=== PATIENT | male | born 1945 | race Caucasian/White ===

== ENCOUNTER 2016-08-29 06:44 | Inpatient (IN) ==
[2016-08-29] MEDS ORDERED: methylPREDNISolone 125 MG/2 ML VIAL IVP ONE (06:51)
[2016-08-29] MEDS ORDERED: Ipratropium/Albuterol Neb 3 ML IH ONE (06:51)
[2016-08-29] MEDS ORDERED: Azithromycin 500 MG in D5% in Water 250 ML IVPB ONE (07:14)
--- NOTE | 2016-08-29 07:24 | Emergency Department Note ---
Disposition Clinical Impression: Pneumonia Qualifiers: Pneumonia type: due to unspecified organism Laterality: right Lung location: lower lobe of lung Qualified Code(s): J18.1 - Lobar pneumonia, unspecified organism Disposition: Admitted As Inpatient Condition: Good SOB HPI - General Chief Complaint: ED Shortness of Breath/Dyspnea Stated Complaint: JADE Time Seen by Provider: 08/29/16 06:50 Source: patient Limitations: no limitations Nursing Notes Reviewed: Yes Vital Signs Reviewed: Yes - History of Present Illness Patient here for evaluation of dyspnea that was sudden in onset at 3 AM this morning. Patient's symptoms initially started on Monday with chills and increasing use of albuterol at home. Patient has some underlying dyspnea at baseline and has home oxygen that he does not use. Patient takes albuterol between 2-8 times daily. Patient has been feeling chills but no overt fever. Found to have a temperature of 102 as well as tachycardia at 130 upon arrival. Intermittent wheezing with rhonchi more specific to the right lower lobe. Patient is able to talk in complete sentences without first lips. - Related Data Home Medications Medication Instructions Recorded Confirmed Aspirin [Lo-Dose Aspirin EC] 81 mg PO DAILY 08/29/16 08/29/16 Fluticasone/Vilanterol [Breo 1 puff IH DAILY 08/29/16 08/29/16 Ellipta 200-25 Mcg INH] Gemfibrozil [Gemfibrozil] 600 mg PO BID 08/29/16 08/29/16 Glimepiride [Amaryl] 2 mg PO BID 08/29/16 08/29/16 Guaifen/Phenyleph/Acetaminophn 1 tab PO BID 08/29/16 08/29/16 [Sudafed PE Pressure+Pain+Mucus] Guaifenesin [Mucinex] 600 mg PO BID 08/29/16 08/29/16 Insulin Glargine,Hum.rec.anlog 65 unit SQ QAM 08/29/16 08/29/16 [Lantus Solostar] Ipratropium/Albuterol Neb [Duoneb] 3 ml IH Q4HR 08/29/16 08/29/16 Loratadine [Claritin] 10 mg PO DAILY 08/29/16 08/29/16 Losartan/HCTZ [Hyzaar 50-12.5 1 tab PO DAILY 08/29/16 08/29/16 Tablet] Pravastatin Sodium [Pravachol] 80 mg PO DAILY 08/29/16 08/29/16 Tiotropium [place] [Spiriva] 18 mcg IH DAILY 08/29/16 08/29/16 Allergies Allergy/AdvReac Type Severity Reaction Status Date / Time No Known Allergies Allergy Verified 08/29/16 07:09 All systems ED: reviewed and negative except as stated. Constitutional: Reports: fever, chills Cardiovascular: Reports: dyspnea on exertion. Denies: chest pain Respiratory: Reports: cough, dyspnea, wheezes Endocrine: Reports: fatigue Past Medical History - Past Medical History Medical history: Reports: COPD, CVA, diabetes, hyperlipidemia, hypertension - Social History Smoking Status: Never smoker Smokeless Tobacco Status: No Alcohol use: Reports: none Drug use: Reports: none Physical Exam - General Limitations: no limitations General appearance: alert, in no apparent distress - Head Head exam: atraumatic, normocephalic - Eye Eye exam: Present: normal appearance - ENT ENT exam: normal exam - Neck Neck exam: Present: normal inspection - Chest Chest inspection: Present: normal inspection, symmetric chest wall rise. Absent : tenderness - Respiratory Respiratory exam: Present: respiratory distress, wheezes, other (Rhonchi to the right lower lobe). Absent: normal lung sounds bilaterally - Cardiovascular Cardiovascular exam: Present: normal rhythm, tachycardia - Abdominal Exam Abdominal exam: Present: soft, Non-Tender - Extremities Exam Extremities exam: Present: normal inspection. Absent: tenderness - Back Exam Back exam: Present: normal inspection - Neurological Exam Neurological exam: Present: alert, oriented X3, CN II-XII intact. Absent: motor sensory deficit - Psychiatric Psychiatric exam: Present: normal affect, normal mood - Skin Skin exam: Present: warm, dry Course - Reevaluation(s) Reevaluation #1: X-ray shows right lower lobe pneumonia. Due to the patient's age, hypoxia, tachycardia, temperature -the patient will be admitted to the hospital. - Consultations Consultation #1: Discussed with Dr. Lance. Pt accepted for admission. Vital Signs Temperature 102.8 F H 08/29/16 06:46 Pulse Rate 132 08/29/16 06:46 Respiratory Rate 24 08/29/16 06:46 Blood Pressure 129/81 08/29/16 06:46 O2 Sat by Pulse Oximetry 93 L 08/29/16 06:46 Temperature 97.6 F 08/30/16 07:40 Pulse Rate 84 08/30/16 07:40 Respiratory Rate 18 08/30/16 07:40 Blood Pressure 115/81 08/30/16 07:40 O2 Sat by Pulse Oximetry 95 08/30/16 07:40 Oxygen Delivery Oxygen Delivery Nasal Cannula Shortness of Breath/Dyspnea - Medical Records Medical records reviewed: Yes I reviewed the patient's medical records. - Lab Data Lab results reviewed: Yes I reviewed the patient's lab results. Result diagrams: 08/30/16 06:31 08/30/16 06:31 Lab Results 08/29/16 08/29/16 08/29/16 Range/Units 07:30 07:30 07:30 WBC 10.3 (4.3-11.1) K/mcL RBC 4.45 (4.19-5.50) M/mcL Hgb 12.1 L (12.9-16.9) g/dL Hct 37.9 (37.5-50.1) % MCV 85.2 (83.0-100.0) fL MCH 27.2 L (28.0-33.3) pg MCHC 31.9 (31.6-35.5) g/dL RDW 14.7 H (11.5-14.5) % Plt Count 284 (140-400) K/mcL MPV 9.9 (9.4-12.4) fL Immature Gran % 0.3 (0-4) % Seg Neutrophils % 89.2 % Lymphocytes % 6.0 % Monocytes % 3.2 % Eosinophils % 1.0 % Basophils % 0.3 % Neutrophils # 9.2 H (1.6-8.9) K/mcL Lymphocytes # 0.6 (0.6-4.6) K/mcL Monocytes # 0.3 (0.0-1.3) K/mcL Eosinophils # 0.1 (0.0-0.6) K/mcL Basophils # 0.0 (0.0-0.2) K/mcL Platelet Estimate Normal (Normal) Polychromasia 1+ A (Not Present) PT 14.0 H (9.4-12.1) Seconds INR 1.3 APTT 28.6 (26.0-36.0) Seconds Sodium (136-145) mEq/L Potassium (3.5-4.5) mEq/L Chloride (98-109) mEq/L Carbon Dioxide (19-29) mEq/L BUN (8-26) mg/dL Creatinine (0.72-1.25) mg/dL Est GFR ( Amer) (> 60) Est GFR (Non-Af Amer) (> 60) BUN/Creatinine Ratio (6-26) Glucose (70-99) mg/dL Calculated Osmolality (280-300) Lactic Acid 2.4 H (0.5-2.2) mmol/L Calcium (8.6-10.8) mg/dL Phosphorus (2.3-4.7) mg/dL Magnesium (1.6-2.6) mg/dL Total Bilirubin (0.2-1.2) mg/dL Direct Bilirubin (0.0-0.5) mg/dL Indirect Bilirubin (0.0-1.2) mg/dL AST (5-34) Units/L ALT (0-55) Units/L Alkaline Phosphatase (38-126) Units/L Troponin I (0-0.03) ng/mL B-Natriuretic Peptide (0-100) pg/mL Serum Total Protein (6.0-8.3) g/dL Albumin (3.5-5.0) g/dL Globulin (2.4-3.5) g/dL Albumin/Globulin Ratio (1.1-2.2) 08/29/16 08/29/16 08/29/16 Range/Units 07:30 07:30 07:30 WBC (4.3-11.1) K/mcL RBC (4.19-5.50) M/mcL Hgb (12.9-16.9) g/dL Hct (37.5-50.1) % MCV (83.0-100.0) fL MCH (28.0-33.3) pg MCHC (31.6-35.5) g/dL RDW (11.5-14.5) % Plt Count (140-400) K/mcL MPV (9.4-12.4) fL Immature Gran % (0-4) % Seg Neutrophils % % Lymphocytes % % Monocytes % % Eosinophils % % Basophils % % Neutrophils # (1.6-8.9) K/mcL Lymphocytes # (0.6-4.6) K/mcL Monocytes # (0.0-1.3) K/mcL Eosinophils # (0.0-0.6) K/mcL Basophils # (0.0-0.2) K/mcL Platelet Estimate (Normal) Polychromasia (Not Present) PT (9.4-12.1) Seconds INR APTT (26.0-36.0) Seconds Sodium 138 (136-145) mEq/L Potassium 3.5 (3.5-4.5) mEq/L Chloride 104 (98-109) mEq/L Carbon Dioxide 20 (19-29) mEq/L BUN 29 H (8-26) mg/dL Creatinine 1.56 H (0.72-1.25) mg/dL Est GFR ( Amer) 54 L (> 60) Est GFR (Non-Af Amer) 44 L (> 60) BUN/Creatinine Ratio 19 (6-26) Glucose 172 H (70-99) mg/dL Calculated Osmolality 296 (280-300) Lactic Acid (0.5-2.2) mmol/L Calcium 9.2 (8.6-10.8) mg/dL Phosphorus (2.3-4.7) mg/dL Magnesium (1.6-2.6) mg/dL Total Bilirubin (0.2-1.2) mg/dL Direct Bilirubin (0.0-0.5) mg/dL Indirect Bilirubin (0.0-1.2) mg/dL AST (5-34) Units/L ALT (0-55) Units/L Alkaline Phosphatase (38-126) Units/L Troponin I 0.01 (0-0.03) ng/mL B-Natriuretic Peptide 40 (0-100) pg/mL Serum Total Protein (6.0-8.3) g/dL Albumin (3.5-5.0) g/dL Globulin (2.4-3.5) g/dL Albumin/Globulin Ratio (1.1-2.2) 08/29/16 08/29/16 Range/Units 07:30 09:32 WBC (4.3-11.1) K/mcL RBC (4.19-5.50) M/mcL Hgb (12.9-16.9) g/dL Hct (37.5-50.1) % MCV (83.0-100.0) fL MCH (28.0-33.3) pg MCHC (31.6-35.5) g/dL RDW (11.5-14.5) % Plt Count (140-400) K/mcL MPV (9.4-12.4) fL Immature Gran % (0-4) % Seg Neutrophils % % Lymphocytes % % Monocytes % % Eosinophils % % Basophils % % Neutrophils # (1.6-8.9) K/mcL Lymphocytes # (0.6-4.6) K/mcL Monocytes # (0.0-1.3) K/mcL Eosinophils # (0.0-0.6) K/mcL Basophils # (0.0-0.2) K/mcL Platelet Estimate (Normal) Polychromasia (Not Present) PT (9.4-12.1) Seconds INR APTT (26.0-36.0) Seconds Sodium (136-145) mEq/L Potassium (3.5-4.5) mEq/L Chloride (98-109) mEq/L Carbon Dioxide (19-29) mEq/L BUN (8-26) mg/dL Creatinine (0.72-1.25) mg/dL Est GFR ( Amer) (> 60) Est GFR (Non-Af Amer) (> 60) BUN/Creatinine Ratio (6-26) Glucose (70-99) mg/dL Calculated Osmolality (280-300) Lactic Acid 2.8 H (0.5-2.2) mmol/L Calcium (8.6-10.8) mg/dL Phosphorus 1.5 L (2.3-4.7) mg/dL Magnesium 1.3 L (1.6-2.6) mg/dL Total Bilirubin 0.8 (0.2-1.2) mg/dL Direct Bilirubin 0.4 (0.0-0.5) mg/dL Indirect Bilirubin 0.4 (0.0-1.2) mg/dL AST 11 (5-34) Units/L ALT 8 (0-55) Units/L Alkaline Phosphatase 64 (38-126) Units/L Troponin I (0-0.03) ng/mL B-Natriuretic Peptide (0-100) pg/mL Serum Total Protein 7.8 (6.0-8.3) g/dL Albumin 3.0 L (3.5-5.0) g/dL Globulin 4.8 H (2.4-3.5) g/dL Albumin/Globulin Ratio 0.6 L (1.1-2.2) - Radiology Data Radiology results reviewed: Yes I reviewed the patient's radiology results. Chest X-Ray 08/29/16 06:52 IMPRESSION: 1. Right lower lobe pneumonia. Followup to resolution is recommended. 2. COPD. D/ / Hill wSeeney MD / Hill Sweeney MD Interpreting Provider: Hill Sweeney MD - EKG Data EKG attestation: Yes I reviewed and interpreted this EKG. EKG results narrative: EKG shows sinus tachycardia with a ventricular rate of 137. PA 158. QRS is 33. Patient depressions in V3 and V4. Depressions changed from previous . No other significant changes. Attestation Statement - Attestation Attestation: I examined this patient and my medical decision-making was reviewed with the INSTRUMENT LENS GENERATOR/PA/Advanced Practice Nurse/Resident Physician. I agree with the documented findings, disposition and treatment plan as described except to the extent set forth below. Patient emergency department if any difficulty in breathing. Patient states about 3 AM he "felt like I was going to ." Patient has home oxygen but he does not wear it. On examination he is awake and alert. Tachypneic. Febrile at 102. Lung sounds diminished. No wheezing rhonchi or rales. Abdomen soft. Plan. Patient displacement as a pneumonia. Febrile. Septic workup. Patient with infiltrate on chest x-ray. Fever 102. He is given Tylenol. Patient admitted to medicine. Patient meet septic shock criteria with elevated lactate and acute kidney injury. Magnesium and phosphorus are replaced. She given 2 L fluid bolus. Patient not hypotensive. Concerned with cardiac history for fluid overload. No further IV fluids at this time. 35 minutes of critical care time exclusive of separately billable procedures
[2016-08-29 07:42] LABS: Basophils % 0.3 %; Eosinophils # 0.1 K/mcL (0.0-0.6); Hematocrit 37.9 % (37.5-50.1); Hemoglobin 12.1 g/dL (12.9-16.9); Immature Granulocytes % 0.3 % (0-4); Lymphocytes # 0.6 K/mcL (0.6-4.6); Mean Corpuscular HGB Conc 31.9 g/dL (31.6-35.5); Mean Corpuscular Hemoglobin 27.2 pg (28.0-33.3); Mean Corpuscular Volume 85.2 fL (83.0-100.0); Mean Platelet Volume 9.9 fL (9.4-12.4); Monocytes # 0.3 K/mcL (0.0-1.3); Monocytes % 3.2 %; Neutrophils # 9.2 K/mcL (1.6-8.9); Platelet Count 284 K/mcL (140-400); Red Blood Count 4.45 M/mcL (4.19-5.50); Red Cell Distribution Width 14.7 % (11.5-14.5); Segmented Neutrophils % 89.2 %
[2016-08-29] MEDS: 0.9 % Sodium Chloride 1,000 ML IVC SCH ×2 (07:49→09:30)
[2016-08-29 07:55] LABS: Calcium 9.2 mg/dL (8.6-10.8); Potassium 3.5 mEq/L (3.5-4.5)
[2016-08-29 07:56] LABS: Albumin/Globulin Ratio 0.6 (1.1-2.2); Bilirubin,Direct 0.4 mg/dL (0.0-0.5); Bilirubin,Indirect 0.4 mg/dL (0.0-1.2); Bilirubin,Total 0.8 mg/dL (0.2-1.2); Globulin 4.8 g/dL (2.4-3.5); Magnesium 1.3 mg/dL (1.6-2.6); Phosphorous 1.5 mg/dL (2.3-4.7); Total Protein 7.8 g/dL (6.0-8.3)
[2016-08-29 08:11] LABS: Platelet Estimate Normal (Normal); Polychromasia 1+ (Not Present)
[2016-08-29 08:12] LABS: INR 1.3
[2016-08-29] MEDS ORDERED: Magnesium Oxide 400 MG TABLET PO STA (08:13)
[2016-08-29 08:15] LABS: Activated Partial Thrombo Time 28.6 Seconds (26.0-36.0)
[2016-08-29] MEDS ORDERED: FLU VACC QS2016-17 36MOS UP/PF 0.5 ML SYRINGE IM ONE (09:52)
[2016-08-29] MEDS ORDERED: Naloxone 0.4 MG/ML INJ IVP PRN (10:52)
[2016-08-29] MEDS ORDERED: *HR* Morphine 2 MG/ML SYRINGE IVP PRN (10:52)
[2016-08-29] MEDS ORDERED: 0.9 % Sodium Chloride 1,000 ML IVC SCH (11:00)
[2016-08-29] MEDS ORDERED: Dextrose Gel 15 GM PO PRN ×2 (11:02)
[2016-08-29] MEDS ORDERED: D5% in Water 1,000 ML IV PRN ×2 (11:02→22:04)
[2016-08-29] MEDS ORDERED: *HR* Dextrose 50 % in Water (Syg) 50 ML SYRINGE IVP PRN (11:02)
--- NOTE | 2016-08-29 11:16 | Internal Med History&Physical ---
Date of Encounter: 08/29/16 Time of Encounter: 11:05 Assessment and Plan (1) Pneumonia Status: Acute Bilateral PNA: - Blood cultures - IV ceftriaxone/IV Azithromycin - Repeat Xrays in 48 hours for possible improvement/worsening. - will treat as CAP Qualifiers: Pneumonia type: due to unspecified organism Laterality: right Lung location: lower lobe of lung Qualified Code(s): J18.1 - Lobar pneumonia, unspecified organism (2) Acute exacerbation of chronic obstructive airways disease Status: Acute Admit as inpatient IV antibiotics IV steroids BDAs close monitoring. (3) HTN (hypertension) Status: Acute will resume home meds close monitoring of blood pressure. will send 3 troponin to rule out cardiac event. Qualifiers: Hypertension type: essential hypertension Qualified Code(s): I10 - Essential (primary) hypertension (4) DVT prophylaxis Status: Acute heparin medical decision making : mild to moderate risk of worsening in spite on appropriate treatment. Internal Medicine - H&P: HPI Chief complaint: JADE Admitted From: Emergency Dept Plans for Post Hospital Care: Home History of present illness: PCP : Gaston Mederos Brief PMH: COPD, CVA, diabetes, hyperlipidemia, hypertension HPI: Patient's symptoms initially started on Monday with chills and increasing use of albuterol at home. Patient has some underlying dyspnea at baseline and has home oxygen that he does not use. Patient takes albuterol between 2-8 times daily. Patient has been feeling chills but no overt fever. Found to have a temperature of 102 as well as tachycardia at 130 upon arrival. A spiking fever was brought this patient to the emergency room for further evaluation. Patient denies chest pain, palpitations, dizziness, abdominal pain and diarrhea. Emergency room workup: Patient was evaluated in the emergency room. CXR bilateral PNA. saturation 88% on 2 L. patient does not have oxygen at home. reason for admission : acute exacerbation of COPD precipated by PNA. Needs IV abx. Family history : non contributory. Past Med Surg Social Fam HX - Past Medical History Medical history: COPD, CVA, diabetes, hyperlipidemia, hypertension - Past Surgical History Surgical History: no surgical history - Social History Smoking Status: Former smoker Smokeless Tobacco Status: No Alcohol use: none Drug use: none Internal Medicine - H&P: Meds Aspirin [Lo-Dose Aspirin EC] 81 mg PO DAILY 08/29/16 [History] Fluticasone/Vilanterol [Breo Ellipta 200-25 Mcg INH] 1 puff IH DAILY 08/29/16 [ History] Gemfibrozil 600 mg PO BID 08/29/16 [History] Glimepiride [Amaryl] 2 mg PO BID 08/29/16 [History] Guaifen/Phenyleph/Acetaminophn [Sudafed PE Mtyesgso-Nyac-Bnnim] 1 tab PO BID 12/10 [History] Guaifenesin [Mucinex] 600 mg PO BID 08/29/16 [History] Insulin Glargine,Hum.rec.anlog [Lantus Solostar] 65 unit SQ QAM 08/29/16 [ History] Ipratropium/Albuterol Neb [Duoneb] 3 ml IH Q4HR 08/29/16 [History] Loratadine [Claritin] 10 mg PO DAILY 08/29/16 [History] Losartan/HCTZ [Hyzaar 50-12.5 Tablet] 1 tab PO DAILY 08/29/16 [History] Pravastatin Sodium [Pravachol] 80 mg PO DAILY 08/29/16 [History] Tiotropium [place] [Spiriva] 18 mcg IH DAILY 08/29/16 [History] Apixaban [Eliquis] 5 mg PO BID #60 tablet 09/03/16 [Rx] Diltiazem CD (24hr) [Cardizem CD] 240 mg PO DAILY #30 cap.er.24h 09/03/16 [Rx] Levofloxacin [Levaquin] 500 mg PO DAILY #4 tablet 09/03/16 [Rx] Metoprolol XL (24 HR) Succ [Toprol Xl] 50 mg PO DAILY #60 tab.er.24h 09/03/16 [ Rx] PredniSONE 40 mg PO DAILY #7 tablet 09/03/16 [Rx] Allergies No Known Allergies Allergy (Verified 08/29/16 07:09) All Systems PM: A 10-system review of systems was performed and is negative for pertinent findings except as documented above in the HPI. - Constitutional Constitutional: no chills, no fever(s), no night sweats - EENT Eyes: no change in vision, no discharge, no pain, no photophobia Ears: no ear discharge, no ear pain, no tinnitus Nose, mouth and throat: no dysphagia, no nasal discharge, no neck pain, no sore throat - Cardiovascular Cardiovascular ROS IM: no chest pain, no diaphoresis, no dyspnea, no lightheadedness, no palpitations, no syncope - Respiratory Respiratory: cough, dyspnea, wheezing, excessive phlegm production, change in phlegm color - Gastrointestinal Gastrointestinal: no abdominal pain, no diarrhea, no hematemesis, no hematochezia, no melena, no nausea, no vomiting - Musculoskeletal Musculoskeletal ROS IM: no numbness, no tingling - Integumentary Integumentary IM: no rash, no unusual bruising - Neurological Neurological ROS: no confusion, no convulsions, no focal weakness, no numbness, no tingling, no tremor(s) - Hematologic/Lymphatic Hematologic/Lymphatic: no easy bruising - Constitutional Vitals: Temp Pulse Resp BP Pulse Ox 97.9 F 99 22 122/60 94 L 08/29/16 09:37 08/29/16 09:37 08/29/16 09:37 08/29/16 09:37 08/29/16 09:37 General appearance: Present: mild distress, A&O X 3, pleasant, answers questions appropriately - Head Head exam: Present: atraumatic, normocephalic - Eye Eye exam: Present: PERRL, conjuntiva pink, sclera anicteric Pupils: Present: PERRL - Neck Neck exam general surgery: Present: supple, trachea midline. Absent: lymphadenopathy - Respiratory Respiratory exam: Present: CTAB. Absent: accessory muscle use, rales, rhonchi, wheezes - Cardiovascular Cardiovascular exam: Present: RRR, +S1, +S2. Absent: diastolic murmur, gallop, rubs, systolic murmur - GI/Abdominal GI/Abdominal exam: Present: normal bowel sounds, soft, no peritoneal signs. Absent: distended, tenderness - Extremities Exam Extremities exam: Present: warm, radial pulses palpable and symetrical. Absent : calf tenderness, cyanotic, pedal edema - Neurological Exam Neurological exam: Present: CN II-XII intact, oriented X3, no focal deficits. Absent: pronater drift, facial droop, speech deficit - Skin Skin exam: Present: dry, intact Internal Med - H&P Results - Labs CBC & Chem 7: 09/03/16 05:52 09/03/16 05:52
[2016-08-29] MEDS: Aspirin Enteric Coated 81 MG Tablet PO SCH (12:17)
[2016-08-29] MEDS: Insulin LISPRO 300 UNITS/3 ML VIAL SQ SCH ×2 (12:19→16:32)
[2016-08-29 12:45] LABS: Bilirubin,Urine Negative (Negative); Blood,Urine Negative (Negative); Clarity,Urine Clear (Clear); Color,Urine Yellow (Yellow); Glucose,Urine (UA) Normal (Normal); Ketones,Urine Negative (Negative); Leukocyte Esterase,Urine Trace (Negative); Nitrite,Urine Negative (Negative); PH,Urine 5.5 pH Units (5.0-8.0); Protein,Urine 30 mg/dL (Neg-Trace); Specific Gravity,Urine 1.022 (1.010-1.025); Urobilinogen,Urine Normal (Normal)
[2016-08-29 12:47] LABS: Bacteria,Urine None Seen per hpf (None-Few); Hyaline Casts,Urine None Seen per lpf (None-Few); Squamous Epithelial Cell,Urine Many per lpf (None-Few)
[2016-08-29] MEDS: Ipratropium/Albuterol Neb 3 ML IH SCH ×3 (13:18→20:32)
[2016-08-29] MEDS: MethylPREDNISolone 40 MG/ML VIAL IVP SCH (16:32)
[2016-08-29] MEDS: *HR* Heparin 5,000 UNIT/ML VIAL SQ SCH (16:32)
[2016-08-29] MEDS ORDERED: Insulin LISPRO 300 UNITS/3 ML VIAL SQ SCH (22:15)
[2016-08-30] MEDS: Insulin LISPRO 300 UNITS/3 ML VIAL SQ SCH ×5 (00:13→21:17)
[2016-08-30] MEDS: MethylPREDNISolone 40 MG/ML VIAL IVP SCH ×4 (00:54→21:16)
[2016-08-30] MEDS: Ipratropium/Albuterol Neb 3 ML IH SCH ×6 (04:13→21:25)
[2016-08-30] MEDS: *HR* Heparin 5,000 UNIT/ML VIAL SQ SCH (06:13)
[2016-08-30 06:53] LABS: Basophils % 0.1 %; Hematocrit 31.3 % (37.5-50.1); Immature Granulocytes % 0.5 % (0-4); Lymphocytes # 1.3 K/mcL (0.6-4.6); Lymphocytes % 8.8 %; Mean Corpuscular HGB Conc 32.6 g/dL (31.6-35.5); Mean Corpuscular Hemoglobin 28.1 pg (28.0-33.3); Mean Corpuscular Volume 86.2 fL (83.0-100.0); Mean Platelet Volume 10.1 fL (9.4-12.4); Monocytes # 0.4 K/mcL (0.0-1.3); Monocytes % 2.5 %; Neutrophils # 13.1 K/mcL (1.6-8.9); Platelet Count 259 K/mcL (140-400); Red Blood Count 3.63 M/mcL (4.19-5.50); Red Cell Distribution Width 14.6 % (11.5-14.5); Segmented Neutrophils % 88.1 %
[2016-08-30 06:54] LABS: Hemoglobin 10.2 g/dL (12.9-16.9)
[2016-08-30 07:08] LABS: Alanine Aminotransferase 8 Units/L (0-55); Albumin 2.8 g/dL (3.5-5.0); Albumin/Globulin Ratio 0.6 (1.1-2.2); Alkaline Phosphatase 56 Units/L (38-126); Aspartate Amino Transferase 9 Units/L (5-34); BUN/Creatinine Ratio 19 (6-26); Bilirubin,Total 0.4 mg/dL (0.2-1.2); Blood Urea Nitrogen 26 mg/dL (8-26); Calcium 8.9 mg/dL (8.6-10.8); Carbon Dioxide 19 mEq/L (19-29); Chloride 105 mEq/L (98-109); Chol/HDL Ratio 5.3 (0-4.9); Cholesterol 154 mg/dL (< 200); Globulin 4.7 g/dL (2.4-3.5); Glucose 276 mg/dL (70-99); HDL Cholesterol 29 mg/dL (40-59); LDL Cholesterol,Calculated 102 mg/dL (0-99); Magnesium 1.5 mg/dL (1.6-2.6); Osmolality,Calculated 297 (280-300); Potassium 3.9 mEq/L (3.5-4.5); Sodium 136 mEq/L (136-145); Total Protein 7.5 g/dL (6.0-8.3); Triglycerides 113 mg/dL (< 150); eGFR For African Americans > 60 (> 60); eGFR For Non-African Americans 53 (> 60)
[2016-08-30 07:22] LABS: Phosphorous 2.8 mg/dL (2.3-4.7)
[2016-08-30] MEDS ORDERED: Insulin LISPRO 300 UNITS/3 ML VIAL SQ SCH (07:30)
--- NOTE | 2016-08-30 07:53 | Internal Med History&Physical ---
Date of Encounter: 08/30/16 Internal Medicine - H&P: HPI History of present illness: Mr. Garrett is a 71 year old male Past Med Surg Social Fam HX - Past Medical History Medical history: COPD, CVA, diabetes, hyperlipidemia, hypertension - Past Surgical History Surgical History: no surgical history - Social History Smoking Status: Never smoker Smokeless Tobacco Status: No Alcohol use: none Drug use: none Internal Medicine - H&P: Meds Aspirin [Lo-Dose Aspirin EC] 81 mg PO DAILY 08/29/16 [History] Fluticasone/Vilanterol [Breo Ellipta 200-25 Mcg INH] 1 puff IH DAILY 08/29/16 [ History] Gemfibrozil [Gemfibrozil] 600 mg PO BID 08/29/16 [History] Glimepiride [Amaryl] 2 mg PO BID 08/29/16 [History] Guaifen/Phenyleph/Acetaminophn [Sudafed PE Pressure+Pain+Mucus] 1 tab PO BID 12/10 [History] Guaifenesin [Mucinex] 600 mg PO BID 08/29/16 [History] Insulin Glargine,Hum.rec.anlog [Lantus Solostar] 65 unit SQ QAM 08/29/16 [ History] Ipratropium/Albuterol Neb [Duoneb] 3 ml IH Q4HR 08/29/16 [History] Loratadine [Claritin] 10 mg PO DAILY 08/29/16 [History] Losartan/HCTZ [Hyzaar 50-12.5 Tablet] 1 tab PO DAILY 08/29/16 [History] Pravastatin Sodium [Pravachol] 80 mg PO DAILY 08/29/16 [History] Tiotropium [place] [Spiriva] 18 mcg IH DAILY 08/29/16 [History] Allergies No Known Allergies Allergy (Verified 08/29/16 07:09) All Systems PM: A 10-system review of systems was performed and is negative for pertinent findings except as documented above in the HPI. - Constitutional Vitals: Temp Pulse Resp BP Pulse Ox 97.6 F 84 18 115/81 95 08/30/16 07:40 08/30/16 07:40 08/30/16 07:40 08/30/16 07:40 08/30/16 07:40 General appearance: Present: mild distress, A&O X 3, pleasant, answers questions appropriately Internal Med - H&P Results - Labs CBC & Chem 7: 08/30/16 06:31 08/30/16 06:31 Labs: Short CBC 08/30/16 Range/Units 06:31 WBC 14.9 H (4.3-11.1) K/mcL Hgb 10.2 L D (12.9-16.9) g/dL Hct 31.3 L (37.5-50.1) % Plt Count 259 (140-400) K/mcL Neutrophils # 13.1 H (1.6-8.9) K/mcL BMP 08/30/16 06:31 Sodium 136 Potassium 3.9 Chloride 105 Carbon Dioxide 19 BUN 26 Creatinine 1.34 H Glucose 276 H Calcium 8.9 Cardiac Enzymes 08/29/16 08/29/16 08/30/16 Range/Units 15:45 21:27 06:31 Troponin I 0.00 0.00 0.00 (0-0.03) ng/mL Liver Function 08/30/16 Range/Units 06:31 Total Bilirubin 0.4 (0.2-1.2) mg/dL AST 9 (5-34) Units/L ALT 8 (0-55) Units/L Alkaline Phosphatase 56 (38-126) Units/L Albumin 2.8 L (3.5-5.0) g/dL Urine 08/29/16 Range/Units 12:19 Urine Color Yellow (Yellow) Urine Clarity Clear (Clear) Urine pH 5.5 (5.0-8.0) pH Units Ur Specific [place] 1.022 (1.010-1.025) Urine Protein 30 H (Neg-Trace) mg/dL Urine Glucose (UA) Normal (Normal) mg/dL
[2016-08-30] MEDS: Aspirin Enteric Coated 81 MG Tablet PO SCH (08:15)
[2016-08-30] MEDS: Insulin DETEMIR 100 UNIT/ML X5UNITS SQ SCH (08:17)
[2016-08-30] MEDS ORDERED: Azithromycin 500 MG in D5% in Water 250 ML IVPB SCH (09:00)
[2016-08-30] MEDS ORDERED: Losartan/HCTZ 50-12.5 TABLET PO SCH (09:00)
[2016-08-30] MEDS ORDERED: Albuterol 2.5 MG/3 ML NEBULIZER IH PRN (09:53)
[2016-08-30] MEDS ORDERED: Magnesium Sulfate 2 GM in D5% in Water 100 ML IVPB ONE (11:23)
[2016-08-30] MEDS ORDERED: 0.9 % Sodium Chloride 1,000 ML IVC ONE (11:37)
[2016-08-30] MEDS: Budesonide/Formoterol 80/4.5 MDI IH SCH ×2 (11:54→21:23)
--- NOTE | 2016-08-30 12:10 | Electrocardiograph Report ---
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
[2016-08-30] MEDS ORDERED: 0.9 % Sodium Chloride 250 ML ONE (14:08)
--- NOTE | 2016-08-30 14:30 | Electrocardiograph Report ---
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
--- NOTE | 2016-08-30 14:50 | Cardiology Consult Note ---
Date of Encounter: 08/30/16 Time of Encounter: 14:00 Assessment and Plan (1) Pneumonia Current Visit: Yes Status: Acute Per cardiology: -Patient with increased shortness of breath. and febrile on admission. -Chest x-ray with RLL pneumonia and COPD. WBC 14.9. -On nebs, O2, anitibiotics, and steroids. -Management per primary service. -Will change albuterol nebs to xopenex due to tachycardia. -May be contributing factor to atrial fibrillation. (IGNACIO) Qualifiers: Pneumonia type: due to unspecified organism Laterality: right Lung location: lower lobe of lung Qualified Code(s): J18.1 - Lobar pneumonia, unspecified organism (2) Acute exacerbation of chronic obstructive airways disease Current Visit: Yes Status: Acute Per cardiology: -Known history of COPD. -On home O2. -On nebs, O2, antibiotics, and steroids as inpatient. -Management per primary service. -May be contributing factor to atrial fibrillation. (IGNACIO) (3) Atrial fibrillation Current Visit: Yes Status: Acute Per cardioogy: -Patient with apparent new onset atrial fibrillation with RVR. HR currently 100- 110s. Asymptomatic -No known history of atrial fibrillation. -Troponins negative x4. -Currently on cardizem drip at 10mg/hour (ordered per primary service) -[id number] score 5. -Currently on eliquis 5mg PO BID (ordered by primary service)-- will give first dose now and discontinue subcutaneous heparin. -Discussed at length regarding increased risk of stroke. Patient and family state understanding and agreeable to treatment plan. -Will check TSH. -WIll continue cardizem drip for now-- will start Cardizem 30 mg by mouth every 6 hours and attempt to wean off IV Cardizem drip to keep heart rate less than 100 bpm. -Will check echocardiogram when better rate controlled. -Will continue to monitor. -Solid blood pressure currently 90s to 120s, will discontinue Hyzaar to allow for room for titration of calcium channel darling for rate control. Has history of diabetes mellitus type 2, will consider resumption of SOHAIL inhibitor once rate controlled and BP can tolerate. -Further recommendations once HR and BP re-evaluated. (IGNACIO) Qualifiers: Atrial fibrillation type: unspecified Qualified Code(s): I48.91 - Unspecified atrial fibrillation (4) Hypomagnesemia Current Visit: Yes Status: Acute Per cardiology: -Mg on admission 1.3-replaced per primary service. -Mg today 1.5-replaced per primary service. -Management per primary service, -Will re-check tomorrow. -May be contributing to atrial fibrillation. (IGNACIO) Discussion w patient/family: The assessment and plan as outlined above was discussed with the patient and/or family members who expressed understanding and agreement. All questions were answered. Thank you for involving us in the care of your patient. Please call with any questions. Patient seen and examined with SALMA Fisher Discussed and reviewed with . History of Present Illness Consult date: 08/30/16 Requesting physician: Sebastian White Consult reason: new onset a.fib rvr Chief complaint: shortness of breath History of present illness: Mr. Garrett is a 71 year old male with a relevant past medical history of HTN, CVA , DM, hyperlipidemia. Patient presented with shortness of breath. Patient wears O2 at home, but states shortness of breath had been increasing. Patient states he has a cough also. Patient admits fever. Denies chest pain or dizziness. (IGNACIO) Past Med Surg Social Fam HX - Past Medical History Attestation: Yes The following information was validated with the patient. Source: patient, old records reviewed Medical history: COPD, CVA, diabetes, hyperlipidemia, hypertension - Past Surgical History Surgical History: no surgical history - Social History Smoking Status: Never smoker Smokeless Tobacco Status: No Alcohol use: none Drug use: none Medications and Allergies Aspirin [Lo-Dose Aspirin EC] 81 mg PO DAILY 08/29/16 [History] Fluticasone/Vilanterol [Breo Ellipta 200-25 Mcg INH] 1 puff IH DAILY 08/29/16 [ History] Gemfibrozil [Gemfibrozil] 600 mg PO BID 08/29/16 [History] Glimepiride [Amaryl] 2 mg PO BID 08/29/16 [History] Guaifen/Phenyleph/Acetaminophn [Sudafed PE Pressure+Pain+Mucus] 1 tab PO BID 12/10 [History] Guaifenesin [Mucinex] 600 mg PO BID 08/29/16 [History] Insulin Glargine,Hum.rec.anlog [Lantus Solostar] 65 unit SQ QAM 08/29/16 [ History] Ipratropium/Albuterol Neb [Duoneb] 3 ml IH Q4HR 08/29/16 [History] Loratadine [Claritin] 10 mg PO DAILY 08/29/16 [History] Losartan/HCTZ [Hyzaar 50-12.5 Tablet] 1 tab PO DAILY 08/29/16 [History] Pravastatin Sodium [Pravachol] 80 mg PO DAILY 08/29/16 [History] Tiotropium [place] [Spiriva] 18 mcg IH DAILY 08/29/16 [History] Allergies No Known Allergies Allergy (Verified 08/29/16 07:09) All Systems Review: A 10-system review of systems was performed and is negative for pertinent findings except as documented above in the HPI. - Constitutional Constitutional: fever(s) - Cardiovascular Cardiovascular: as per HPI, dyspnea at rest, dyspnea on exertion - Respiratory Respiratory: cough, dyspnea Physical Examination Vital Signs, Last 4 Hours Temp Pulse Resp BP Pulse Ox 08/30/16 12:35 98.2 F 105 20 122/74 93 L 08/30/16 11:42 97.7 F 123 18 99/64 93 L General: Conversant, No Apparent Distress HEENT: Atraumatic, Normocephaly, Mucus Membranes Moist Neck: No JVD, Normal carotid pulses Cardiac: Other (Irregularly, irregular) Lungs: Other (Right lower lobe with dimished breath sounds. Wheezing throughout. ) Neuro: Alert and responsive, No focal deficits noted Abdomen: Soft, Non-Tender Skin: No rashes noted on visualized skin Musculoskeletal: No Chest Wall Tenderness Extremities: No Clubbing, No Cyanosis, No Edema, Normal Pulses Results 08/30/16 06:31 08/30/16 06:31 Lab Results ITS Impressions Chest X-Ray 08/29/16 06:52 IMPRESSION: 1. Right lower lobe pneumonia. Followup to resolution is recommended. 2. COPD. D/ / Hill Sweeney MD / Hill Sweeney MD Interpreting Provider: Hill Sweeney MD Active Medications Albuterol Sulfate (Proventil Neb) 2.5 mg IH [id number] PRN; Protocol PRN Reason: Shortness Of Breath/Wheezing Stop: 03/01/17 09:54 Albuterol/Ipratropium (Duoneb) 3 ml IH QIDR CAROLYN PRN Reason: Protocol Stop: 03/01/17 11:01 Last Admin: 08/30/16 11:54 Dose: Not Given Apixaban (Eliquis) 5 mg PO BID CAROL[facility] Stop: 03/01/17 21:01 Aspirin (Aspirin Ec) 81 mg PO DAILY [facility] Stop: 02/28/17 11:01 Last Admin: 08/30/16 08:15 Dose: 81 mg Budesonide/Formoterol Fumarate (Symbicort) 2 puff IH BIDR CAROLYN PRN Reason: Protocol Stop: 03/01/17 10:01 Last Admin: 08/30/16 11:54 Dose: Not Given Dextrose/Water (Dextrose 50% (Syg)) 25 ml IVP AD PRN PRN Reason: Hypoglycemia Stop: 02/28/17 11:03 Gemfibrozil (Lopid) 600 mg PO BID [facility] Stop: 02/28/17 21:01 Last Admin: 08/30/16 08:15 Dose: 600 mg Glucagon (Glucagen) 1 mg IM ONCE PRN PRN Reason: Hypoglycemia Stop: 02/28/17 11:03 Glucose (Gluctose) 15 gm PO ONCE PRN PRN Reason: Hypoglycemia Stop: 02/28/17 11:03 Glucose (Gluctose) 30 gm PO ONCE PRN PRN Reason: Hypoglycemia Stop: 02/28/17 11:03 HCTZ/Losartan Potassium (Hyzaar 50/12.5) 1 each PO DAILY [facility] Stop: 03/01/17 09:01 Last Admin: 08/30/16 08:15 Dose: 1 each Heparin Sodium (Porcine) (Heparin) 5,000 unit SQ Q12HR CAROL[facility] Stop: 08/30/16 19:00 Last Admin: 08/30/16 06:13 Dose: 5,000 unit Azithromycin 500 mg/ Dextrose 250 mls @ 252 mls/hr IVPB Q24H [facility] Stop: 03/01/17 09:01 Last Infusion: 08/30/16 08:20 Dose: Infused Ceftriaxone Sodium 1,000 mg/ (Dextrose) 100 mls @ 200 mls/hr IVPB Q24H [facility] Stop: 03/01/17 11:01 Last Admin: 08/30/16 12:07 Dose: 200 mls/hr Dextrose (Dextrose 5%) 1,000 mls @ 100 mls/hr IV CONT PRN PRN Reason: HYPOGLYCEMIA Stop: 02/28/17 22:05 Diltiazem HCl 125 mg/ Dextrose 125 mls @ 10 mls/hr IVC .[id number] [facility] PRN Reason: 10 MG/HR Stop: 03/01/17 13:16 Last Admin: 08/30/16 14:16 Dose: 10 mg/hr, 10 mls/hr Insulin Detemir (Levemir) 65 unit SQ QAM [facility] Stop: 03/01/17 09:01 Last Admin: 08/30/16 08:17 Dose: 65 unit Insulin Human Lispro (Humalog) 0 units SQ HS [facility] PRN Reason: Protocol Stop: 02/28/17 23:46 Last Admin: 08/30/16 00:13 Dose: 8 units Insulin Human Lispro (Humalog) 0 units SQ TIDAC [facility] PRN Reason: Protocol Stop: 03/01/17 07:31 Last Admin: 08/30/16 11:55 Dose: 14 units Methylprednisolone (Solu-Medrol) 40 mg IVP Q12H [facility] Stop: 03/01/17 10:01 Last Admin: 08/30/16 11:58 Dose: Not Given Morphine Sulfate (Morphine Sulfate) 2 mg IVP Q6HR PRN PRN Reason: Severe Pain (7-10) Stop: 02/28/17 10:53 Naloxone HCl (Narcan) 0.4 mg IVP Q2MIN PRN PRN Reason: Opioid Reversal Stop: 02/28/17 10:53 Omeprazole (Prilosec) 20 mg PO DAILY@0630 [facility] PRN Reason: Protocol Stop: 03/01/17 06:31 Last Admin: 08/30/16 06:13 Dose: 20 mg Simvastatin (Zocor) 40 mg PO DAILY [facility] Stop: 03/01/17 09:01 Last Admin: 08/30/16 08:15 Dose: 40 mg Laboratory Tests 08/29/16 08/29/16 08/30/16 07:30 07:30 06:31 WBC 14.9 H Hgb 10.2 L D Creatinine 1.56 H Est GFR (Non-Af Amer) 44 L Magnesium 1.3 L 08/30/16 06:31 WBC Hgb Creatinine 1.34 H Est GFR (Non-Af Amer) 53 L Magnesium 1.5 L Laboratory Tests 08/29/16 08/29/16 08/29/16 07:30 15:45 21:27 Troponin I 0.01 0.00 0.00 08/30/16 06:31 Troponin I 0.00 - Imaging and Cardiology Chest Xray: report reviewed - EKG Interpretation EKG results cardiology: personally reviewed (ECG on admission with Sinus tachycardia with heart rate 132 with PACs.), other (Telemetry reviewed with average heart rate 85. Currently atrial fibrillation with heart rates between 100-110s.) Consult Discharge Plan - Plan Referrals: Christoph,Raphael Palm MD [Non-Partnered Physician] - 09/09/16 2:20 pm
[2016-08-30] MEDS: Levalbuterol Neb 1.25 MG/3 ML IH SCH ×3 (16:40→21:25)
[2016-08-30] MEDS ORDERED: APIXABAN 5 MG TABLET PO SCH (21:00)
[2016-08-30] MEDS: APIXABAN 5 MG TABLET PO SCH (21:15)
[2016-08-31] MEDS: Levalbuterol Neb 1.25 MG/3 ML IH SCH ×4 (03:47→22:12)
[2016-08-31] MEDS: Ipratropium/Albuterol Neb 3 ML IH SCH ×4 (03:47→22:15)
[2016-08-31 06:07] LABS: Thyroid Stimulating Hormone 1.922 mcIU/mL (0.350-4.840)
[2016-08-31] MEDS: APIXABAN 5 MG TABLET PO SCH ×2 (07:52→20:11)
[2016-08-31] MEDS: Aspirin Enteric Coated 81 MG Tablet PO SCH (07:52)
[2016-08-31] MEDS: Insulin LISPRO 300 UNITS/3 ML VIAL SQ SCH ×4 (07:53→21:21)
[2016-08-31] MEDS ORDERED: Vancomycin 2,000 MG in D5% in Water 500 ML IVPB ONE (07:58)
[2016-08-31] MEDS: Insulin DETEMIR 100 UNIT/ML X5UNITS SQ SCH (08:34)
[2016-08-31 08:48] LABS: Basophils % 0.1 %; Hematocrit 31.7 % (37.5-50.1); Hemoglobin 10.1 g/dL (12.9-16.9); Immature Granulocytes % 0.6 % (0-4); Lymphocytes # 1.4 K/mcL (0.6-4.6); Lymphocytes % 9.9 %; Mean Corpuscular HGB Conc 31.9 g/dL (31.6-35.5); Mean Corpuscular Hemoglobin 27.5 pg (28.0-33.3); Mean Corpuscular Volume 86.4 fL (83.0-100.0); Mean Platelet Volume 10.7 fL (9.4-12.4); Monocytes # 0.4 K/mcL (0.0-1.3); Monocytes % 2.7 %; Neutrophils # 12.5 K/mcL (1.6-8.9); Platelet Count 302 K/mcL (140-400); Red Blood Count 3.67 M/mcL (4.19-5.50); Red Cell Distribution Width 14.6 % (11.5-14.5); Segmented Neutrophils % 86.7 %
[2016-08-31 08:57] LABS: BUN/Creatinine Ratio 25 (6-26); Blood Urea Nitrogen 30 mg/dL (8-26); Calcium 8.8 mg/dL (8.6-10.8); Carbon Dioxide 18 mEq/L (19-29); Chloride 106 mEq/L (98-109); Glucose 350 mg/dL (70-99); Osmolality,Calculated 300 (280-300); Phosphorous 2.3 mg/dL (2.3-4.7); Potassium 4.7 mEq/L (3.5-4.5); Sodium 135 mEq/L (136-145); eGFR For African Americans > 60 (> 60); eGFR For Non-African Americans 59 (> 60)
[2016-08-31] MEDS ORDERED: *HR* Metoprolol 5 MG/5 ML VIAL IVP ONE (09:17)
--- NOTE | 2016-08-31 09:33 | Cardiology Progress Note ---
Date of Encounter: 08/31/16 Time of Encounter: 08:30 Assessment and Plan (1) Pneumonia Current Visit: Yes Status: Acute Per cardiology: -Patient with increased shortness of breath. and febrile on admission. -Chest x-ray with RLL pneumonia and COPD. WBC 14.1. -On nebs, O2, anitibiotics, and steroids. -Management per primary service. -May be contributing factor to atrial fibrillation. (IGNACIO) Qualifiers: Pneumonia type: due to unspecified organism Laterality: right Lung location: lower lobe of lung Qualified Code(s): J18.1 - Lobar pneumonia, unspecified organism (2) Acute exacerbation of chronic obstructive airways disease Current Visit: Yes Status: Acute Per cardiology: -Known history of COPD. -On home O2. -On nebs, O2, antibiotics, and steroids as inpatient. -Management per primary service. -May be contributing factor to atrial fibrillation. (IGNACIO) (3) Atrial fibrillation Current Visit: Yes Status: Acute Per cardioogy: -Patient with apparent new onset atrial fibrillation with RVR. HR currently 90- 110s, atrial fibrillation. Average HR last 12 hours 93. -No known history of atrial fibrillation. -Cardizem drip off. Currently on cardizem 30mg PO [id number]. -[id number] score 5. -Currently on eliquis 5mg PO BID (ordered by primary service). -Discussed at length regarding increased risk of stroke. Patient and family state understanding and agreeable to treatment plan. -TSH 1.922. -Echo pending -HYzaar stopped due to labile BP and kidney function. -Will increase cardizem to 60mg PO [id number]. Will give IV Lopressor 2.5mg x 1-- HR jumped to 110's when up out of bed. SBP ranging 100's - 150's. -Will continue to monitor. -Will consider resumption of SOHAIL inhibitor once rate controlled and BP can tolerate. -Further recommendations once HR and BP re-evaluated and echocardiogram complete. (IGNACIO) Qualifiers: Atrial fibrillation type: unspecified Qualified Code(s): I48.91 - Unspecified atrial fibrillation (4) Hypomagnesemia Current Visit: Yes Status: Acute Per cardiology: -Mg on admission 1.3-replaced per primary service. -Mg today 2.0. -Management per primary service, -May be contributing to atrial fibrillation. (IGNACIO) Discussion w patient/family: The assessment and plan as outlined above was discussed with the patient and/or family members who expressed understanding and agreement. All questions were answered. Thank you for involving us in the care of your patient. Please call with any questions. Patient seen and examined with SALMA Fisher Discussed and reviewed with . Subjective Principal diagnosis: shortness of breath Interval history: Patient with presentation of worsening shortness of breath. Patient admitted per primary service. While inpatient, it was noted that patient was in atrial fibrillation with rapid ventricular response. Cardiology was consulted. Patient was asymptomatic. Patient denies any palpitations, fluttering, or dizziness. (IGNACIO ) Objective Vital Signs, Last 4 Hours Temp Pulse Resp BP Pulse Ox 08/31/16 07:30 97.5 F L 114 18 111/92 93 L 08/31/16 07:24 97.5 F L 114 18 111/92 93 L General: Conversant, Other (Conversational dyspnea noted. ) HEENT: Atraumatic, Normocephaly, Mucus Membranes Moist Neck: No JVD Cardiac: Other (Irregularly, irregular ) Lungs: No Wheeze, Rales, Rhonchi, Other (Right lower lobe with diminished breath sounds. ) Neuro: Alert and responsive, No focal deficits noted Abdomen: Soft, Non-Tender Skin: No rashes noted on visualized skin Musculoskeletal: No Chest Wall Tenderness Extremities: No Clubbing, No Cyanosis, No Edema, Normal Pulses Results 08/31/16 03:45 08/31/16 03:45 Lab Results Active Medications Albuterol/Ipratropium (Duoneb) 3 ml IH QIDR CAROLYN PRN Reason: Protocol Stop: 03/01/17 11:01 Last Admin: 08/31/16 03:47 Dose: Not Given Apixaban (Eliquis) 5 mg PO BID [facility] Stop: 03/01/17 21:01 Last Admin: 08/31/16 07:52 Dose: 5 mg Aspirin (Aspirin Ec) 81 mg PO DAILY [facility] Stop: 02/28/17 11:01 Last Admin: 08/31/16 07:52 Dose: 81 mg Budesonide/Formoterol Fumarate (Symbicort) 2 puff IH BIDR CAROLYN PRN Reason: Protocol Stop: 03/01/17 10:01 Last Admin: 08/30/16 21:23 Dose: 2 puff Dextrose/Water (Dextrose 50% (Syg)) 25 ml IVP AD PRN PRN Reason: Hypoglycemia Stop: 02/28/17 11:03 Diltiazem HCl (Cardizem) 60 mg PO Q6HR [facility] Stop: 03/01/17 18:01 Gemfibrozil (Lopid) 600 mg PO BID [facility] Stop: 02/28/17 21:01 Last Admin: 08/31/16 07:52 Dose: 600 mg Glucagon (Glucagen) 1 mg IM ONCE PRN PRN Reason: Hypoglycemia Stop: 02/28/17 11:03 Glucose (Gluctose) 15 gm PO ONCE PRN PRN Reason: Hypoglycemia Stop: 02/28/17 11:03 Glucose (Gluctose) 30 gm PO ONCE PRN PRN Reason: Hypoglycemia Stop: 02/28/17 11:03 Dextrose (Dextrose 5%) 1,000 mls @ 100 mls/hr IV CONT PRN PRN Reason: HYPOGLYCEMIA Stop: 02/28/17 22:05 Diltiazem HCl 125 mg/ Dextrose 125 mls @ 10 mls/hr IVC .[id number] [facility] PRN Reason: 10 MG/HR Stop: 03/01/17 13:16 Last Infusion: 08/30/16 23:53 Dose: 0 mg/hr, 0 mls/hr Piperacillin Sod/Tazobactam (Sod 3.375 gm/ Dextrose) 100 mls @ 25 mls/hr IVPB Q8HR [facility] PRN Reason: Protocol Stop: 03/02/17 08:01 Vancomycin HCl 2,000 mg/ (Dextrose) 500 mls @ 250 mls/hr IVPB ONCE ONE PRN Reason: Protocol Stop: 08/31/16 09:57 Vancomycin HCl 1,750 mg/ (Dextrose) 500 mls @ 333.34 mls/hr IVPB Q12H [facility] Stop: 03/02/17 20:01 Insulin Detemir (Levemir) 65 unit SQ QAM [facility] Stop: 03/01/17 09:01 Last Admin: 08/31/16 08:34 Dose: 65 unit Insulin Human Lispro (Humalog) 0 units SQ HS [facility] PRN Reason: Protocol Stop: 02/28/17 23:46 Last Admin: 08/30/16 21:17 Dose: 6 units Insulin Human Lispro (Humalog) 0 units SQ TIDAC [facility] PRN Reason: Protocol Stop: 03/01/17 07:31 Last Admin: 08/31/16 07:53 Dose: 14 units Levalbuterol HCl (Xopenex) 1.25 mg IH [id number] [facility] Stop: 03/01/17 16:01 Last Admin: 08/31/16 03:47 Dose: 1.25 mg Methylprednisolone (Solu-Medrol) 40 mg IVP Q12H [facility] Stop: 03/01/17 10:01 Last Admin: 08/30/16 21:16 Dose: 40 mg Morphine Sulfate (Morphine Sulfate) 2 mg IVP Q6HR PRN PRN Reason: Severe Pain (7-10) Stop: 02/28/17 10:53 Naloxone HCl (Narcan) 0.4 mg IVP Q2MIN PRN PRN Reason: Opioid Reversal Stop: 02/28/17 10:53 Omeprazole (Prilosec) 20 mg PO DAILY@0630 [facility] PRN Reason: Protocol Stop: 03/01/17 06:31 Last Admin: 08/31/16 06:21 Dose: 20 mg Simvastatin (Zocor) 40 mg PO HS [facility] Stop: 03/01/17 09:01 Laboratory Tests 08/30/16 08/31/16 08/31/16 06:31 03:45 03:45 WBC 14.4 H Hgb 10.1 L Creatinine 1.34 H 1.21 Magnesium 1.5 L 2.0 TSH 1.922 - Imaging and Cardiology Chest Xray: report reviewed Echo: pending - EKG Interpretation EKG results cardiology: personally reviewed (ECG with sinus tachycardia, heart rate 132 with frequent PACs.), other (Telemetry reviewed with average heart rate over last 12 hours was 93, atrial fibrillation. Longest pause 1.8 seconds. Occasional PVCS.) Consult Discharge Plan - Plan Referrals: Hawthorne,Raphael Palm MD [Non-Partnered Physician] - 09/09/16 2:20 pm
[2016-08-31] MEDS: Budesonide/Formoterol 80/4.5 MDI IH SCH ×2 (10:58→22:13)
[2016-08-31] MEDS: Piperacillin/Tazobactam 3.375 GM in D5% in Water (Mini-Bag+) 100 ML IVPB SCH ×3 (11:00→23:53)
[2016-08-31] MEDS: MethylPREDNISolone 40 MG/ML VIAL IVP SCH ×2 (11:02→21:21)
--- NOTE | 2016-08-31 11:07 | Internal Med Progress Note ---
Date of Encounter: 08/31/16 Time of Encounter: 11:07 - Assessment and plan (1) Atrial fibrillation Current Visit: Yes Status: Acute Assessment and plan: New onset A. fib with intermittent RVR this morning Cardiology on board consultation appreciated Continue Cardizem and metoprolol for rate control Follow-up 2-D echocardiogram Started anticoagulation with Eliquis Continue to closely monitor Qualifiers: Atrial fibrillation type: unspecified Qualified Code(s): I48.91 - Unspecified atrial fibrillation (2) Acute exacerbation of chronic obstructive airways disease Current Visit: Yes Status: Acute Assessment and plan: Likely secondary to underlying pneumonia Continue systemic steroids and bronchodilator support Broad antibiotic coverage to add antipseudomonal coverage Continue IV antibiotics at this time. Pharmacy to dose vancomycin and to monitor trough Continue O2 supplementation as needed Patient educated about the need to be compliant with home oxygen therapy Continue to monitor O2 saturation, goal O2 saturation 89-92% GI prophylaxis due to high steroid therapy (3) Pneumonia Current Visit: Yes Status: Acute Assessment and plan: Plan as listed above Qualifiers: Pneumonia type: due to unspecified organism Laterality: right Lung location: lower lobe of lung Qualified Code(s): J18.1 - Lobar pneumonia, unspecified organism (4) Diabetes mellitus Current Visit: Yes Status: Acute Assessment and plan: Patient did not receive his home dose of Levemir yesterday, which was started today We will continue to closely monitor fingerstick and blood glucose Will adjust insulin therapy as per the insulin requirements after receiving his Levemir dosing today Continue sliding scale insulin and will correct them as needed Qualifiers: Diabetes mellitus type: type 2 Diabetes mellitus complication status: with unspecified complications Diabetes mellitus termite exterminator helper insulin use: with termite exterminator helper use Qualified Code(s): E11.8 - Type 2 diabetes mellitus with unspecified complications; Z79.4 - senior living (current) use of insulin (5) HTN (hypertension) Current Visit: Yes Status: Acute Assessment and plan: Blood pressure within acceptable range Continue home medications Qualifiers: Hypertension type: essential hypertension Qualified Code(s): I10 - Essential (primary) hypertension (6) Morbid obesity Current Visit: Yes Status: Chronic Qualifiers: Obesity type: unspecified obesity type Qualified Code(s): E66.01 - Morbid ( severe) obesity due to excess calories (7) DVT prophylaxis Current Visit: Yes Status: Acute Assessment and plan: Heparin subcutaneous - Subjective Interval history: Patient is a 71-year-old male admitted for acute exacerbation of COPD, pneumonia and afib with RVR. Patient is reported to have failed outpatient antibiotic therapy. Patient seen and examined with present at bedside. As per , patient is noncompliant with using his home oxygen therapy. At this time patient denies any respiratory distress and is breathing comfortably, saturating well on nasal cannula. - Constitutional Vitals: Temp Pulse Resp BP Pulse Ox 97.5 F L 114 18 111/92 94 L 08/31/16 07:30 08/31/16 07:30 08/31/16 10:58 08/31/16 07:30 08/31/16 10:58 General appearance: Present: A&O X 3, morbidly obese, pleasant, no acute distress, answers questions appropriately - Head Head exam: Present: atraumatic, normocephalic - Respiratory Respiratory exam: Present: decreased breath sounds. Absent: respiratory distress, wheezes - Cardiovascular Cardiovascular exam: Present: RRR, +S1, +S2 - GI/Abdominal GI/Abdominal exam: Present: normal bowel sounds, soft. Absent: tenderness - Extremities Exam Extremities exam: Present: pedal edema, warm, radial pulses palpable and symetrical. Absent: calf tenderness - Neurological Exam Neurological exam: Present: alert, oriented X3 - Psychiatric Psychiatric exam: Present: normal affect, normal mood Internal Medicine: Result - Labs CBC & Chem 7: 08/31/16 03:45 08/31/16 03:45 Labs: Short CBC 08/31/16 Range/Units 03:45 WBC 14.4 H (4.3-11.1) K/mcL Hgb 10.1 L (12.9-16.9) g/dL Hct 31.7 L (37.5-50.1) % Plt Count 302 (140-400) K/mcL Neutrophils # 12.5 H (1.6-8.9) K/mcL BMP 08/31/16 03:45 Sodium 135 L Potassium 4.7 H Chloride 106 Carbon Dioxide 18 L BUN 30 H Creatinine 1.21 Glucose 350 H Calcium 8.8 - ABG Interpretation ABG results: PT/INR, D-dimer PT 14.0 Seconds (9.4-12.1) H 08/29/16 07:30 Consult Discharge Plan - Plan Referrals: Raphael Hawthorne MD [Non-Partnered Physician] - 09/09/16 2:20 pm
--- NOTE | 2016-08-31 15:27 | Event Note ---
Date of Encounter: 08/31/16 Time of Encounter: 15:30 - Cardiology Event Note Echo still pending. Current heart rate 96 with systolic blood pressure 130s. We' ll convert to long-acting Cardizem CD 240 mg by mouth daily, continue to monitor heart rate and blood pressure.
[2016-08-31] MEDS: Diltiazem CD (24hr) 240 MG CAPSULE PO SCH (16:23)
[2016-08-31] MEDS: Vancomycin 1,750 MG in D5% in Water 500 ML IVPB SCH (20:11)
[2016-09-01] MEDS: Levalbuterol Neb 1.25 MG/3 ML IH SCH ×4 (03:33→22:51)
[2016-09-01] MEDS: Ipratropium/Albuterol Neb 3 ML IH SCH ×4 (03:49→23:02)
[2016-09-01 05:38] LABS: Basophils % 0.1 %; Hematocrit 33.8 % (37.5-50.1); Hemoglobin 10.7 g/dL (12.9-16.9); Immature Granulocytes % 2.4 % (0-4); Lymphocytes # 1.4 K/mcL (0.6-4.6); Lymphocytes % 11.8 %; Mean Corpuscular HGB Conc 31.7 g/dL (31.6-35.5); Mean Corpuscular Volume 85.1 fL (83.0-100.0); Mean Platelet Volume 9.6 fL (9.4-12.4); Monocytes # 0.4 K/mcL (0.0-1.3); Monocytes % 3.2 %; Neutrophils # 9.9 K/mcL (1.6-8.9); Platelet Count 305 K/mcL (140-400); Red Blood Count 3.97 M/mcL (4.19-5.50); Red Cell Distribution Width 14.3 % (11.5-14.5); Segmented Neutrophils % 82.5 %
[2016-09-01 05:55] LABS: BUN/Creatinine Ratio 26 (6-26); Blood Urea Nitrogen 31 mg/dL (8-26); Carbon Dioxide 22 mEq/L (19-29); Chloride 104 mEq/L (98-109); Glucose 323 mg/dL (70-99); Magnesium 1.8 mg/dL (1.6-2.6); Osmolality,Calculated 299 (280-300); Phosphorous 2.7 mg/dL (2.3-4.7); Potassium 4.6 mEq/L (3.5-4.5); Sodium 135 mEq/L (136-145); eGFR For African Americans > 60 (> 60); eGFR For Non-African Americans > 60 (> 60)
[2016-09-01] MEDS: Piperacillin/Tazobactam 3.375 GM in D5% in Water (Mini-Bag+) 100 ML IVPB SCH ×3 (08:17→23:33)
[2016-09-01] MEDS: Aspirin Enteric Coated 81 MG Tablet PO SCH (08:17)
[2016-09-01] MEDS: APIXABAN 5 MG TABLET PO SCH ×2 (08:17→20:33)
[2016-09-01] MEDS: Diltiazem CD (24hr) 240 MG CAPSULE PO SCH (08:17)
[2016-09-01] MEDS: Vancomycin 1,750 MG in D5% in Water 500 ML IVPB SCH (08:17)
[2016-09-01] MEDS: Insulin LISPRO 300 UNITS/3 ML VIAL SQ SCH ×6 (08:18→20:34)
--- NOTE | 2016-09-01 08:59 | ECHO - Doppler Report ---
Echocardiogram Name: Tri Garrett Date of Study: 08/31/2016 Date: 1945 Ht: 73.0 in Medical Record#: [id number] Age: 71 Wt: 288.0 lb Gender: Male BSA: 2.51 Order #: [id number] Location: [facility] Room #: 2N9 Reading Physician: Agustin Rosario MD, [facility] Mule Tender: Phylicia Burch Ordering Physician: Nick Zhu CNP Primary Physician: None Indications: AFIB controlled Impressions: Normal LV systolic function, LVEF 55-60%. Indeterminate diastolic function due to atrial fibrillation. No significant valvular dysfunction. No evidence of pulmonary hypertension. Left Ventricular Wall Motion: Rest Echo Findings All wall segments showed normal motion. Findings: Study Quality * Suboptimal echo windows. ECG Findings * Atrial fibrillation. Left Ventricle * Normal LV systolic function, LVEF 55-60%. * Normal LV chamber size and wall thickness. * Indeterminate diastolic function due to atrial fibrillation. Right Ventricle * Normal right ventricular size and function. Left Atrium * Normal left atrial size. Right Atrium * Normal right atrial size. Interatrial Septum * Lipomatous interatrial septum. Aorta * Normally sized aortic root. Pericardium * There is no pericardial effusion present. IVC * Normal IVC dimensions and inspiratory collapse. Aortic Valve * Aortic valve not well visualized. * No aortic stenosis. * No aortic regurgitation. Mitral Valve * Mild mitral annular calcification * No mitral stenosis. * Trace mitral regurgitation. Tricuspid Valve * Tricuspid valve not well visualized. * No tricuspid stenosis. * Trace tricuspid regurgitation. * No evidence of pulmonary hypertension. Pulmonic Valve * Pulmonic valve not well visualized. * No pulmonic stenosis. * No pulmonic regurgitation. History Hypertension Diabetes Hypercholesteremia Family History of CAD Measurements: BP: 139/ 83 2D Normal Values RVIDd: 3.20 cm IVSd: 1.00 cm 0.6 - 1.0 cm LVIDd: 5.00 cm 3.7 - 5.6 cm LVPWd: .90 cm 0.6 - 1.1 cm LVIDs: 3.10 cm 1.5 - 3.6 cm AO: 3.20 cm < 4.0 cm LA volume: 58 Tricuspid Valve TV Regurg Peak Grad: 25.00mmHg TV Regurg Peak Kyle: 2.48m/sec Updated by Agustin Rosario MD, [facility] on 09/01/2016 8:55:02 AM electronically signed on 09/01/2016 8:55:42 AM with status of Final Wall Motion Roca: 1=Normal, 2=Hypokinesis, 3=Akinesis, 4=Dyskinesis, 5=Aneurysmal, 6=Hyperkinetic, X=Not Visualized (Blank)=Missing
[2016-09-01] MEDS: Insulin DETEMIR 100 UNIT/ML X5UNITS SQ SCH ×3 (09:46→20:36)
[2016-09-01] MEDS: MethylPREDNISolone 40 MG/ML VIAL IVP SCH ×2 (09:46→20:33)
[2016-09-01] MEDS ORDERED: *HR* Metoprolol 5 MG/5 ML VIAL IVP ONE (09:48)
--- NOTE | 2016-09-01 10:46 | Cardiology Progress Note ---
Date of Encounter: 09/01/16 Time of Encounter: 10:44 Assessment and Plan (1) Atrial fibrillation Current Visit: Yes Status: Acute Per cardioogy: New onset A-Fib in setting of PNA and COPD exacerbation. On PO Cardizem CD 240mg daily. 24 hour tele AVG HR 94. HR up to 120s at bedside. Add BB--Lopressor 25mg BID and give one time dose of IV Lopressor 5mg now. Transition to long acting Toprol XL in AM. [id number] score 5. Started on eliquis 5mg PO BID by primary service. TSH 1.922. K 4.6, Mag 1.8. Echo shows preserved EF 55-60%, no significant valvular dysfunction. Re-evaluate later today and if adequately rate controlled will sign off with outpt follow-up. Qualifiers: Atrial fibrillation type: unspecified Qualified Code(s): I48.91 - Unspecified atrial fibrillation (2) Acute exacerbation of chronic obstructive airways disease Current Visit: Yes Status: Acute Per cardiology: Known history of COPD on home O2. On nebs, O2, antibiotics, and steroids as inpatient. Management per primary service. May be contributing factor to atrial fibrillation. (3) Hypomagnesemia Current Visit: Yes Status: Acute Per cardiology: Mg on admission 1.3-replaced per primary service. Mg today 1.8--replace. Management per primary service. (4) Pneumonia Current Visit: Yes Status: Acute Per cardiology: Patient with increased shortness of breath. and febrile on admission. Chest x- ray with RLL pneumonia and COPD. On nebs, O2, anitibiotics, and steroids. Management per primary service. May be contributing factor to atrial fibrillation. Qualifiers: Pneumonia type: due to unspecified organism Laterality: right Lung location: lower lobe of lung Qualified Code(s): J18.1 - Lobar pneumonia, unspecified organism Discussion w patient/family: The assessment and plan as outlined above was discussed with the patient and/or family members who expressed understanding and agreement. All questions were answered. Thank you for involving us in the care of your patient. Please call with any questions. I will discuss all the above with Dr. John and make changes as necessary. Subjective Principal diagnosis: shortness of breath Interval history: Pt reports dyspnea is improving. Denies chest pain. Echo resulted--EF 55-60%, no significant valvular dysfunction. 24 hour tele AVG HR 94. At bedside HR up to 120. Objective Vital Signs, Last 4 Hours Temp Pulse Resp BP Pulse Ox 09/01/16 08:39 97 09/01/16 07:34 98.0 F 101 18 158/91 95 Vital Signs Temp Pulse Resp BP Pulse Ox 09/01/16 08:39 97 09/01/16 07:34 98.0 F 101 18 158/91 95 09/01/16 04:02 97.8 F 99 18 131/101 94 L 09/01/16 03:33 16 95 08/31/16 23:55 97.8 F 83 18 116/74 94 L 08/31/16 22:12 18 96 08/31/16 20:52 97.7 F 117 18 162/91 95 08/31/16 20:05 134 08/31/16 16:00 98.1 F 80 18 115/90 95 08/31/16 11:45 97.8 F 95 20 139/83 93 L 08/31/16 11:30 97.5 F L 92 18 111/92 94 L 08/31/16 10:58 18 94 L Intake and Output 08/31/16 09/01/16 09/01/16 23:59 07:59 15:59 Intake Total 1170 / 1170 100 / 100 860 / 860 Output Total 1100 / 1100 405 / 405 Balance 70 / 70 -305 / -305 860 / 860 Intake: IV Fluids 600 / 600 100 / 100 500 / 500 Zosyn 3.375 GM In 100 / 100 100 / 100 Dextrose 5% (Minibag+) 100 ML 100 ML @ 25 mls/hr IVPB Q8HR CAROL[facility] Rx#: [id number] Vancocin 1,750 MG In 500 / 500 500 / 500 Dextrose 5% 500 ML @ 333. 34 mls/hr IVPB Q12H CAROLYN Rx#:[id number] Oral 570 / 570 360 / 360 Output: Urine 1100 / 1100 405 / 405 Other: Meal Breakfast Percent of Meal Consumed 100% # Voids 1 Weight 130 kg Blood Glucose* 417 295 Patient Weight 09/01/16 23:59 Weight 130 kg General: Conversant, No Apparent Distress HEENT: Atraumatic, Normocephaly, Mucus Membranes Moist Neck: No JVD, Normal carotid pulses Cardiac: Other (irregularly irregular ) Lungs: Other (wheezes) Neuro: Alert and responsive, No focal deficits noted Abdomen: Soft, Non-Tender Skin: No rashes noted on visualized skin Musculoskeletal: No Chest Wall Tenderness Extremities: Other (mild BLE edema) Results 09/01/16 05:26 09/01/16 05:26 Lab Results 09/01/16 09/01/16 05:26 05:26 WBC 11.9 H Hgb 10.7 L Hct 33.8 L Plt Count 305 Sodium 135 L Potassium 4.6 H Chloride 104 Carbon Dioxide 22 BUN 31 H Creatinine 1.18 Glucose 323 H Calcium 9.0 Magnesium 1.8 Short CBC 09/01/16 Range/Units 05:26 WBC 11.9 H (4.3-11.1) K/mcL Hgb 10.7 L (12.9-16.9) g/dL Hct 33.8 L (37.5-50.1) % Plt Count 305 (140-400) K/mcL Neutrophils # 9.9 H (1.6-8.9) K/mcL BMP 09/01/16 Range/Units 05:26 Sodium 135 L (136-145) mEq/L Potassium 4.6 H (3.5-4.5) mEq/L Chloride 104 (98-109) mEq/L Carbon Dioxide 22 (19-29) mEq/L BUN 31 H (8-26) mg/dL Creatinine 1.18 (0.72-1.25) mg/dL Glucose 323 H (70-99) mg/dL Calcium 9.0 (8.6-10.8) mg/dL Active Medications Albuterol/Ipratropium (Duoneb) 3 ml IH QIDR CAROLYN PRN Reason: Protocol Stop: 03/01/17 11:01 Last Admin: 09/01/16 03:49 Dose: Not Given Apixaban (Eliquis) 5 mg PO BID [facility] Stop: 03/01/17 21:01 Last Admin: 09/01/16 08:17 Dose: 5 mg Aspirin (Aspirin Ec) 81 mg PO DAILY [facility] Stop: 02/28/17 11:01 Last Admin: 09/01/16 08:17 Dose: 81 mg Budesonide/Formoterol Fumarate (Symbicort) 2 puff IH BIDR CAROLYN PRN Reason: Protocol Stop: 03/01/17 10:01 Last Admin: 08/31/16 22:13 Dose: 2 puff Dextrose/Water (Dextrose 50% (Syg)) 25 ml IVP AD PRN PRN Reason: Hypoglycemia Stop: 02/28/17 11:03 Diltiazem HCl (Cardizem Cd) 240 mg PO DAILY [facility] Stop: 03/02/17 15:31 Last Admin: 09/01/16 08:17 Dose: 240 mg Gemfibrozil (Lopid) 600 mg PO BID [facility] Stop: 02/28/17 21:01 Last Admin: 09/01/16 08:17 Dose: 600 mg Glucagon (Glucagen) 1 mg IM ONCE PRN PRN Reason: Hypoglycemia Stop: 02/28/17 11:03 Glucose (Gluctose) 15 gm PO ONCE PRN PRN Reason: Hypoglycemia Stop: 02/28/17 11:03 Glucose (Gluctose) 30 gm PO ONCE PRN PRN Reason: Hypoglycemia Stop: 02/28/17 11:03 Dextrose (Dextrose 5%) 1,000 mls @ 100 mls/hr IV CONT PRN PRN Reason: HYPOGLYCEMIA Stop: 02/28/17 22:05 Piperacillin Sod/Tazobactam (Sod 3.375 gm/ Dextrose) 100 mls @ 25 mls/hr IVPB Q8HR [facility] PRN Reason: Protocol Stop: 03/02/17 08:01 Last Admin: 09/01/16 08:17 Dose: 25 mls/hr Vancomycin HCl 1,750 mg/ (Dextrose) 500 mls @ 333.34 mls/hr IVPB Q12H [facility] Stop: 03/02/17 20:01 Last Infusion: 09/01/16 10:44 Dose: Infused Insulin Detemir (Levemir) 45 unit SQ BID [facility] Stop: 03/03/17 08:01 Last Admin: 09/01/16 09:47 Dose: Not Given Insulin Human Lispro (Humalog) 0 units SQ HS [facility] PRN Reason: Protocol Stop: 02/28/17 23:46 Last Admin: 08/31/16 21:21 Dose: 9 units Insulin Human Lispro (Humalog) 0 units SQ TIDAC [facility] PRN Reason: Protocol Stop: 03/01/17 07:31 Last Admin: 09/01/16 08:18 Dose: 12 units Insulin Human Lispro (Humalog) 8 units SQ TIDAC [facility] Stop: 03/03/17 11:31 Levalbuterol HCl (Xopenex) 1.25 mg IH [id number] [facility] Stop: 03/01/17 16:01 Last Admin: 09/01/16 03:33 Dose: 1.25 mg Methylprednisolone (Solu-Medrol) 40 mg IVP Q12H [facility] Stop: 03/01/17 10:01 Last Admin: 09/01/16 09:46 Dose: 40 mg Metoprolol Tartrate (Lopressor) 25 mg PO BID [facility] Stop: 03/03/17 09:01 Last Admin: 09/01/16 09:46 Dose: 25 mg Morphine Sulfate (Morphine Sulfate) 2 mg IVP Q6HR PRN PRN Reason: Severe Pain (7-10) Stop: 02/28/17 10:53 Naloxone HCl (Narcan) 0.4 mg IVP Q2MIN PRN PRN Reason: Opioid Reversal Stop: 02/28/17 10:53 Omeprazole (Prilosec) 20 mg PO DAILY@0630 [facility] PRN Reason: Protocol Stop: 03/01/17 06:31 Last Admin: 09/01/16 06:20 Dose: 20 mg Simvastatin (Zocor) 40 mg PO HS [facility] Stop: 03/01/17 09:01 Last Admin: 08/31/16 20:10 Dose: 40 mg - Imaging and Cardiology Echo: report reviewed (EF 55-60%, no significant valvular dysfunction) - EKG Interpretation EKG results cardiology: other (24 hour tele AVG HR 94, A-Fib) Consult Discharge Plan - Plan Referrals: Christoph,Raphael Palm MD [Non-Partnered Physician] - 09/09/16 2:20 pm
[2016-09-01] MEDS: Budesonide/Formoterol 80/4.5 MDI IH SCH ×2 (11:18→22:51)
--- NOTE | 2016-09-01 12:33 | Event Note ---
Date of Encounter: 09/01/16 Time of Encounter: 12:32 - Cardiology Event Note HR now 70s-80s at bedside. Continue Cardizem CD 240mg daily, transition BB to long acting Toprol XL 25mg daily to start in AM, anticoagulated on Eliquis. Cardiology signing off. Reconsult PRN. Follow-up as outpt in 2-3 weeks.
--- NOTE | 2016-09-01 12:58 | Internal Med Progress Note ---
Date of Encounter: 09/01/16 Time of Encounter: 11:00 - Assessment and plan (1) Atrial fibrillation Current Visit: Yes Status: Acute Assessment and plan: New onset A. fib with intermittent RVR this morning Cardiology on board consultation appreciated Continue Cardizem and metoprolol for rate control (Increased Metoprolol for better rate control) 2-D echocardiogram: Normal LV systolic function with LVEF of 55-60%, indeterminate diastolic function due to atrial fibrillation Continue anticoagulation with Eliquis Continue to closely monitor Qualifiers: Atrial fibrillation type: unspecified Qualified Code(s): I48.91 - Unspecified atrial fibrillation (2) Acute exacerbation of chronic obstructive airways disease Current Visit: Yes Status: Acute Assessment and plan: Likely secondary to underlying pneumonia Continue systemic steroids and bronchodilator support Broad antibiotic coverage to add antipseudomonal coverage. Leukocytosis persists but improving Continue IV antibiotics at this time. Pharmacy to dose vancomycin and to monitor trough Continue O2 supplementation as needed Patient educated about the need to be compliant with home oxygen therapy Continue to monitor O2 saturation, goal O2 saturation 89-92% Follow up Blood cultures GI prophylaxis due to high steroid therapy (3) Pneumonia Current Visit: Yes Status: Acute Assessment and plan: Plan as listed above Qualifiers: Pneumonia type: due to unspecified organism Laterality: right Lung location: lower lobe of lung Qualified Code(s): J18.1 - Lobar pneumonia, unspecified organism (4) Diabetes mellitus Current Visit: Yes Status: Acute Assessment and plan: Hyperglycemia persists Patient required 50units of insulin coverage in addition to the Levemir 65units Adjusted Levemir dosing according the coverage requirement (Levemir increased to 45units BID and added Humalog 8units TIDAC) We will continue to closely monitor fingerstick and blood glucose Continue sliding scale insulin and will correct them as needed Qualifiers: Diabetes mellitus type: type 2 Diabetes mellitus complication status: with unspecified complications Diabetes mellitus residential insulin use: with residential use Qualified Code(s): E11.8 - Type 2 diabetes mellitus with unspecified complications; Z79.4 - care home (current) use of insulin (5) HTN (hypertension) Current Visit: Yes Status: Acute Assessment and plan: Blood pressure within acceptable range Continue home medications Qualifiers: Hypertension type: essential hypertension Qualified Code(s): I10 - Essential (primary) hypertension (6) Morbid obesity Current Visit: Yes Status: Chronic Qualifiers: Obesity type: unspecified obesity type Qualified Code(s): E66.01 - Morbid ( severe) obesity due to excess calories (7) DVT prophylaxis Current Visit: Yes Status: Acute Assessment and plan: Heparin subcutaneous (8) Lower extremity edema Current Visit: Yes Status: Acute Assessment and plan: Will obtain RLE venous doppler to rule out DVT Qualifiers: Laterality: right Qualified Code(s): R60.0 - Localized edema - Subjective Interval history: Patient is a 71-year-old male admitted for acute exacerbation of COPD, pneumonia and afib with RVR. Patient is reported to have failed outpatient antibiotic therapy. Patient seen and examined with present at bedside. Reports of feeling better compared to the previous day. Saturating well on nasal cannula, however gets exertional dyspnea with minimal exertion. Reports of worsening edema on right lower extremity. - Constitutional Vitals: Temp Pulse Resp BP Pulse Ox 97.8 F 99 18 142/95 94 L 09/01/16 11:11 09/01/16 11:37 09/01/16 11:20 09/01/16 11:11 09/01/16 11:20 General appearance: Present: A&O X 3, morbidly obese, pleasant, no acute distress, answers questions appropriately - Head Head exam: Present: atraumatic, normocephalic - Eye Eye exam: Present: normal appearance, conjuntiva pink, sclera anicteric - Respiratory Respiratory exam: Present: decreased breath sounds. Absent: respiratory distress, wheezes - Cardiovascular Cardiovascular exam: Present: RRR, +S1, +S2 - GI/Abdominal GI/Abdominal exam: Present: normal bowel sounds, soft, no peritoneal signs. Absent: distended, tenderness - Extremities Exam Extremities exam: Present: pedal edema (bilateral lower extremity edema (Right worst than left)), warm. Absent: calf tenderness - Neurological Exam Neurological exam: Present: alert, oriented X3 - Psychiatric Psychiatric exam: Present: normal affect, normal mood Internal Medicine: Result - Labs CBC & Chem 7: 09/01/16 05:26 09/01/16 05:26 Labs: Short CBC 09/01/16 Range/Units 05:26 WBC 11.9 H (4.3-11.1) K/mcL Hgb 10.7 L (12.9-16.9) g/dL Hct 33.8 L (37.5-50.1) % Plt Count 305 (140-400) K/mcL Neutrophils # 9.9 H (1.6-8.9) K/mcL BMP 09/01/16 05:26 Sodium 135 L Potassium 4.6 H Chloride 104 Carbon Dioxide 22 BUN 31 H Creatinine 1.18 Glucose 323 H Calcium 9.0 - ABG Interpretation ABG results: PT/INR, D-dimer PT 14.0 Seconds (9.4-12.1) H 08/29/16 07:30 Consult Discharge Plan - Plan Referrals: Christoph,Raphael Palm MD [Non-Partnered Physician] - 09/09/16 2:20 pm
[2016-09-01] MEDS: Magnesium Oxide 400 MG TABLET PO SCH (14:34)
[2016-09-01] MEDS: Vancomycin 1,500 MG in D5% in Water 250 ML IVPB SCH (21:31)
[2016-09-02] MEDS: Ipratropium/Albuterol Neb 3 ML IH SCH (03:48)
[2016-09-02] MEDS: Levalbuterol Neb 1.25 MG/3 ML IH SCH ×3 (03:55→15:35)
[2016-09-02 05:58] LABS: BUN/Creatinine Ratio 28 (6-26); Blood Urea Nitrogen 34 mg/dL (8-26); Carbon Dioxide 22 mEq/L (19-29); Chloride 104 mEq/L (98-109); Glucose 234 mg/dL (70-99); Osmolality,Calculated 295 (280-300); Potassium 4.6 mEq/L (3.5-4.5); Sodium 135 mEq/L (136-145); eGFR For African Americans > 60 (> 60); eGFR For Non-African Americans 58 (> 60)
[2016-09-02 06:04] LABS: Basophils % 0.2 %; Hematocrit 35.6 % (37.5-50.1); Hemoglobin 11.5 g/dL (12.9-16.9); Immature Granulocytes % 3.1 % (0-4); Lymphocytes # 2.3 K/mcL (0.6-4.6); Lymphocytes % 15.6 %; Mean Corpuscular HGB Conc 32.3 g/dL (31.6-35.5); Mean Corpuscular Hemoglobin 27.5 pg (28.0-33.3); Mean Corpuscular Volume 85.2 fL (83.0-100.0); Mean Platelet Volume 10.1 fL (9.4-12.4); Monocytes # 0.8 K/mcL (0.0-1.3); Monocytes % 5.4 %; Neutrophils # 11.2 K/mcL (1.6-8.9); Platelet Count 344 K/mcL (140-400); Red Blood Count 4.18 M/mcL (4.19-5.50); Red Cell Distribution Width 14.2 % (11.5-14.5); Segmented Neutrophils % 75.7 %
[2016-09-02] MEDS: Piperacillin/Tazobactam 3.375 GM in D5% in Water (Mini-Bag+) 100 ML IVPB SCH ×2 (07:41→15:07)
[2016-09-02] MEDS: APIXABAN 5 MG TABLET PO SCH ×2 (07:41→21:28)
[2016-09-02] MEDS: Aspirin Enteric Coated 81 MG Tablet PO SCH (07:41)
[2016-09-02] MEDS: Magnesium Oxide 400 MG TABLET PO SCH (07:41)
[2016-09-02] MEDS: Diltiazem CD (24hr) 240 MG CAPSULE PO SCH (07:41)
[2016-09-02] MEDS: Insulin LISPRO 300 UNITS/3 ML VIAL SQ SCH ×7 (07:43→21:29)
[2016-09-02] MEDS ORDERED: Insulin DETEMIR 100 UNIT/ML X5UNITS SQ SCH (08:00)
[2016-09-02] MEDS: Metoprolol XL (24 HR) Succ 25 MG TAB.ER.24H PO SCH (08:27)
[2016-09-02] MEDS: Insulin DETEMIR 100 UNIT/ML X5UNITS SQ SCH ×2 (08:27→21:28)
[2016-09-02] MEDS: Vancomycin 1,500 MG in D5% in Water 250 ML IVPB SCH ×2 (08:28→21:28)
[2016-09-02] MEDS ORDERED: Metoprolol XL (24 HR) Succ 25 MG TAB.ER.24H PO SCH (09:00)
[2016-09-02] MEDS: MethylPREDNISolone 40 MG/ML VIAL IVP SCH ×2 (11:24→21:29)
[2016-09-02] MEDS: Budesonide/Formoterol 80/4.5 MDI IH SCH (11:29)
--- NOTE | 2016-09-02 13:20 | Internal Med Progress Note ---
Date of Encounter: 09/02/16 Time of Encounter: 12:00 - Assessment and plan (1) Atrial fibrillation Current Visit: Yes Status: Acute Assessment and plan: New onset A. fib with intermittent RVR this morning Cardiology on board consultation appreciated Continue Cardizem and metoprolol for rate control (Increased Metoprolol to 50mg PO qd for better rate control and BP control) 2-D echocardiogram: Normal LV systolic function with LVEF of 55-60%, indeterminate diastolic function due to atrial fibrillation Continue anticoagulation with Eliquis Continue to closely monitor If BP and HR remains controlled, likely d/c in am. Qualifiers: Atrial fibrillation type: unspecified Qualified Code(s): I48.91 - Unspecified atrial fibrillation (2) Acute exacerbation of chronic obstructive airways disease Current Visit: Yes Status: Acute Assessment and plan: Likely secondary to underlying pneumonia Continue systemic steroids and bronchodilator support Broad antibiotic coverage to add antipseudomonal coverage. Continue IV antibiotics at this time. Pharmacy to dose vancomycin and to monitor trough Continue O2 supplementation as needed Patient educated about the need to be compliant with home oxygen therapy Continue to monitor O2 saturation, goal O2 saturation 89-92% Follow up Blood cultures GI prophylaxis due to high steroid therapy Repeat CXR: Improving right lower lobe PNA (3) Pneumonia Current Visit: Yes Status: Acute Assessment and plan: Plan as listed above Qualifiers: Pneumonia type: due to unspecified organism Laterality: right Lung location: lower lobe of lung Qualified Code(s): J18.1 - Lobar pneumonia, unspecified organism (4) Diabetes mellitus Current Visit: Yes Status: Acute Assessment and plan: Hyperglycemia persists Patient required 40units of insulin coverage in addition to the Levemir 65units Adjusted Levemir dosing according the coverage requirement (Levemir increased to 55units BID and Humalog 14units TIDAC) We will continue to closely monitor fingerstick and blood glucose Continue sliding scale insulin and will correct them as needed Qualifiers: Diabetes mellitus type: type 2 Diabetes mellitus complication status: with unspecified complications Diabetes mellitus skilled nursing insulin use: with mechanical maintenance use Qualified Code(s): E11.8 - Type 2 diabetes mellitus with unspecified complications; 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 (5) HTN (hypertension) Current Visit: Yes Status: Acute Assessment and plan: Noted to remain hypertensive Adjusted Metoprolol dosing Will continue to closely monitor If remains hypertensive, Will add Lisinopril Continue home medications Qualifiers: Hypertension type: essential hypertension Qualified Code(s): I10 - Essential (primary) hypertension (6) Morbid obesity Current Visit: Yes Status: Chronic Qualifiers: Obesity type: unspecified obesity type Qualified Code(s): E66.01 - Morbid ( severe) obesity due to excess calories (7) DVT prophylaxis Current Visit: Yes Status: Acute Assessment and plan: Heparin subcutaneous (8) Lower extremity edema Current Visit: Yes Status: Acute Assessment and plan: Venous doppler negative for DVT Edema improved from previous day patient encouraged to ambulate Qualifiers: Laterality: right Qualified Code(s): R60.0 - Localized edema - Subjective Interval history: Patient is a 71-year-old male admitted for acute exacerbation of COPD, pneumonia and afib with RVR. Patient is reported to have failed outpatient antibiotic therapy. Patient seen and examined with present at bedside. Reports of feeling better compared to the previous day. Saturating well on nasal cannula, however gets exertional dyspnea with minimal exertion. Noted to remain hypertensive and rate uncontrolled Afib. Increased Metoprolol to 50mg PO qd which improved patient's symptoms. Will continue to monitor. - Constitutional Vitals: Temp Pulse Resp BP Pulse Ox 97.8 F 78 18 137/91 95 09/02/16 11:00 09/02/16 11:29 09/02/16 11:29 09/02/16 11:00 09/02/16 11:29 General appearance: Present: A&O X 3, morbidly obese, pleasant, no acute distress, answers questions appropriately - Head Head exam: Present: atraumatic, normocephalic - Eye Eye exam: Present: normal appearance, conjuntiva pink, sclera anicteric - Respiratory Respiratory exam: Present: decreased breath sounds. Absent: respiratory distress, wheezes - Cardiovascular Cardiovascular exam: Present: RRR, +S1, +S2. Absent: diastolic murmur, gallop, rubs, systolic murmur - GI/Abdominal GI/Abdominal exam: Present: normal bowel sounds, soft, no peritoneal signs. Absent: distended, tenderness - Extremities Exam Extremities exam: Present: pedal edema, warm, radial pulses palpable and symetrical. Absent: calf tenderness, tenderness - Neurological Exam Neurological exam: Present: alert, oriented X3 - Psychiatric Psychiatric exam: Present: normal affect, normal mood Internal Medicine: Result - Labs CBC & Chem 7: 09/02/16 05:09 09/02/16 05:09 Labs: Short CBC 09/02/16 Range/Units 05:09 WBC 14.8 H (4.3-11.1) K/mcL Hgb 11.5 L (12.9-16.9) g/dL Hct 35.6 L (37.5-50.1) % Plt Count 344 (140-400) K/mcL Neutrophils # 11.2 H (1.6-8.9) K/mcL BMP 09/02/16 05:09 Sodium 135 L Potassium 4.6 H Chloride 104 Carbon Dioxide 22 BUN 34 H Creatinine 1.23 Glucose 234 H Calcium 9.0 - ABG Interpretation ABG results: PT/INR, D-dimer PT 14.0 Seconds (9.4-12.1) H 08/29/16 07:30 - Impressions Impressions Chest X-Ray 09/02/16 07:36 IMPRESSION: Improving right lower lobe airspace disease as compared to prior. D/ / Piter Lowery MD / Piter Lowery MD Interpreting Provider: Piter Lowery MD Consult Discharge Plan - Plan Referrals: Raphael Hawthorne MD [Non-Partnered Physician] - 09/09/16 2:20 pm
--- NOTE | 2016-09-02 18:14 | Venous Imaging Report ---
LE Venous Duplex Patient Name:Tri Garrett Order Number:[id number] Procedure Date:09/01/2016 Date:1945ge:71 yrs Gender:Male Location:[facility] Room #: 2N9 Director Global:Phylicia Burch Referring MD:Crystal Marques MD travel manager:Gaston Mederos MD Reading MD:Pancho Vidal MD , [facility] Primary Indications:rule out DVT Secondary Indications: Risk Factors Yes/No Anticoagulants Yes Impressions: Recommendations: After imaging the patient returned to their room. Findings Venous Duplex Results: Right: Venous imaging of the lower extremity reveals full patency and normal vessel compressibility of the right distal iliac, right common femoral, right superficial femoral, right popliteal, right posterior tibial, right peroneal, right great saphenous and right lesser saphenous. Doppler signals in the evaluated veins were normal. Left: Venous imaging of the lower extremity reveals full patency and normal vessel compressibility of the left common femoral. Doppler signals in the evaluated veins were normal. Prior Study: No prior study available for comparison. Lower Extremity Venous Duplex Side Vein Compress Spontaneous Flow Augment Diameter (cm) Depth (cm) Right Distal Iliac Normal Yes Phasic Yes Right Common Femoral Normal Yes Phasic Yes Right Superficial Femoral Normal Yes Phasic Yes Right Popliteal Normal Yes Phasic Yes Right Posterior Tibial Normal Yes Phasic Yes Right Peroneal Normal Yes Phasic Yes Right Great Saphenous Normal Yes Phasic Yes Right Lesser Saphenous Normal Yes Phasic Yes Left Common Femoral Normal Yes Phasic Yes Updated by phylicia on 09/01/2016 4:50:24 PM Pancho Vidal MD electronically signed on 09/02/2016 6:10:23 PM with status of Final
[2016-09-03] MEDS: Piperacillin/Tazobactam 3.375 GM in D5% in Water (Mini-Bag+) 100 ML IVPB SCH ×2 (00:15→08:17)
[2016-09-03] MEDS: Levalbuterol Neb 1.25 MG/3 ML IH SCH ×3 (00:38→11:33)
[2016-09-03] MEDS: Budesonide/Formoterol 80/4.5 MDI IH SCH ×2 (00:38→11:33)
[2016-09-03 06:15] LABS: Basophils # 0.1 K/mcL (0.0-0.2); Basophils % 0.3 %; Hematocrit 36.7 % (37.5-50.1); Hemoglobin 11.7 g/dL (12.9-16.9); Immature Granulocytes % 3.4 % (0-4); Lymphocytes # 2.2 K/mcL (0.6-4.6); Lymphocytes % 13.4 %; Mean Corpuscular HGB Conc 31.9 g/dL (31.6-35.5); Mean Corpuscular Hemoglobin 27.4 pg (28.0-33.3); Mean Corpuscular Volume 85.9 fL (83.0-100.0); Mean Platelet Volume 9.8 fL (9.4-12.4); Monocytes # 0.6 K/mcL (0.0-1.3); Monocytes % 3.4 %; Neutrophils # 13.2 K/mcL (1.6-8.9); Nucleated Red Blood Cells 0.1 /100 WBC (0); Platelet Count 353 K/mcL (140-400); Red Blood Count 4.27 M/mcL (4.19-5.50); Red Cell Distribution Width 14.3 % (11.5-14.5); Segmented Neutrophils % 79.5 %
[2016-09-03 06:34] LABS: BUN/Creatinine Ratio 27 (6-26); Blood Urea Nitrogen 34 mg/dL (8-26); Calcium 9.3 mg/dL (8.6-10.8); Carbon Dioxide 23 mEq/L (19-29); Chloride 105 mEq/L (98-109); Glucose 212 mg/dL (70-99); Osmolality,Calculated 296 (280-300); Phosphorous 3.6 mg/dL (2.3-4.7); Potassium 4.8 mEq/L (3.5-4.5); Sodium 136 mEq/L (136-145); eGFR For African Americans > 60 (> 60); eGFR For Non-African Americans 57 (> 60)
[2016-09-03] MEDS: Aspirin Enteric Coated 81 MG Tablet PO SCH (08:16)
[2016-09-03] MEDS: APIXABAN 5 MG TABLET PO SCH (08:16)
[2016-09-03] MEDS: Diltiazem CD (24hr) 240 MG CAPSULE PO SCH (08:16)
[2016-09-03] MEDS: Magnesium Oxide 400 MG TABLET PO SCH (08:16)
[2016-09-03] MEDS: Metoprolol XL (24 HR) Succ 25 MG TAB.ER.24H PO SCH (08:16)
[2016-09-03] MEDS: Insulin LISPRO 300 UNITS/3 ML VIAL SQ SCH ×2 (08:18)
[2016-09-03] MEDS: Insulin DETEMIR 100 UNIT/ML X5UNITS SQ SCH (09:28)
[2016-09-03] MEDS: Vancomycin 1,500 MG in D5% in Water 250 ML IVPB SCH (09:28)
[2016-09-03] MEDS: MethylPREDNISolone 40 MG/ML VIAL IVP SCH (09:55)
[2016-09-03 10:52] VITALS: BP 127/95
--- NOTE | 2016-09-03 11:46 | Discharge Summary ---
Date of Encounter: 09/03/16 Time of Encounter: 11:42 - Discharge Diagnosis (1) Atrial fibrillation Priority: Primary Status: Acute Qualifiers: Atrial fibrillation type: unspecified Qualified Code(s): I48.91 - Unspecified atrial fibrillation (2) Acute exacerbation of chronic obstructive airways disease Priority: Primary Status: Acute (3) Pneumonia Priority: Primary Status: Acute Qualifiers: Pneumonia type: due to unspecified organism Laterality: right Lung location: lower lobe of lung Qualified Code(s): J18.1 - Lobar pneumonia, unspecified organism (4) Diabetes mellitus Priority: Secondary Status: Acute Qualifiers: Diabetes mellitus type: type 2 Diabetes mellitus complication status: with unspecified complications Diabetes mellitus mcc insulin use: with terminal computer operator use Qualified Code(s): E11.8 - Type 2 diabetes mellitus with unspecified complications; Z79.4 - technician terminal and repeater (current) use of insulin (5) HTN (hypertension) Priority: Secondary Status: Acute Qualifiers: Hypertension type: essential hypertension Qualified Code(s): I10 - Essential (primary) hypertension (6) Morbid obesity Priority: Secondary Status: Chronic Qualifiers: Obesity type: unspecified obesity type Qualified Code(s): E66.01 - Morbid ( severe) obesity due to excess calories (7) DVT prophylaxis Priority: Secondary Status: Acute (8) Lower extremity edema Priority: Secondary Status: Acute Qualifiers: Laterality: right Qualified Code(s): R60.0 - Localized edema - Discharge Medications Prescriptions: Apixaban [Eliquis] 5 mg PO BID #60 tablet Diltiazem CD (24hr) [Cardizem CD] 240 mg PO DAILY #30 cap.er.24h Levofloxacin [Levaquin] 500 mg PO DAILY #4 tablet Metoprolol XL (24 HR) Succ [Toprol Xl] 50 mg PO DAILY #60 tab.er.24h PredniSONE 40 mg PO DAILY #7 tablet Home Medications: Aspirin [Lo-Dose Aspirin EC] 81 mg PO DAILY 08/29/16 [History] Fluticasone/Vilanterol [Breo Ellipta 200-25 Mcg INH] 1 puff IH DAILY 08/29/16 [ History] Gemfibrozil 600 mg PO BID 08/29/16 [History] Glimepiride [Amaryl] 2 mg PO BID 08/29/16 [History] Guaifen/Phenyleph/Acetaminophn [Sudafed PE [id number]] 1 tab PO BID 12/10 [History] Guaifenesin [Mucinex] 600 mg PO BID 08/29/16 [History] Insulin Glargine,Hum.rec.anlog [Lantus Solostar] 65 unit SQ QAM 08/29/16 [ History] Ipratropium/Albuterol Neb [Duoneb] 3 ml IH Q4HR 08/29/16 [History] Loratadine [Claritin] 10 mg PO DAILY 08/29/16 [History] Losartan/HCTZ [Hyzaar 50-12.5 Tablet] 1 tab PO DAILY 08/29/16 [History] Pravastatin Sodium [Pravachol] 80 mg PO DAILY 08/29/16 [History] Tiotropium [place] [Spiriva] 18 mcg IH DAILY 08/29/16 [History] Apixaban [Eliquis] 5 mg PO BID #60 tablet 09/03/16 [Rx] Diltiazem CD (24hr) [Cardizem CD] 240 mg PO DAILY #30 cap.er.24h 09/03/16 [Rx] Levofloxacin [Levaquin] 500 mg PO DAILY #4 tablet 09/03/16 [Rx] Metoprolol XL (24 HR) Succ [Toprol Xl] 50 mg PO DAILY #60 tab.er.24h 09/03/16 [ Rx] PredniSONE 40 mg PO DAILY #7 tablet 09/03/16 [Rx] Allergies/Adverse Reactions: Allergies No Known Allergies Allergy (Verified 08/29/16 07:09) Procedures/tests Complete & Pending: Procedures Performed prior 72 hours Category Date Time Status Venous Doppler [EV venous imaging LE RT] Stat Y 09/01/16 12:53 Completed Date of admission: 08/29/16 10:52 Primary care physician: Gaston Mederos MD Consults: 08/30/16 13:02 Consult to Cardiology [CONS] Routine Comment: Consulting Provider: Cardiology Jazmin Reason for Consult: new-onset atrial fibrillation related to right lobar pneumonia/COPD exacerbation. Call Completed: No 09/01/16 09:57 Consult to Physical Therapy [CONS] Routine Comment: Evaluate, develop and implement POC Discharging clinician: Crystal Marques Anticipated date of discharge: 09/03/16 - Patient Status Disposition: Home Health Service Condition: Good Functional capacity at discharge: uses cane/walker Overall status at discharge: patient is back to baseline - Discharge Instructions Instructions: Chronic Obstructive Pulmonary Disease (DC), Chronic Hypertension (DC), Pneumonia (DC) Follow Up With: Raphael Hawthorne MD [Non-Partnered Physician] - 09/09/16 2:20 pm Additional Instructions: Please follow-up with your jewelry mold maker and primary care physician within one week after discharge from the hospital. The jewelry mold maker office will give you a call on Monday in regards to your follow -up appointment. Cardizem, metoprolol,Eliquis has been added to her home medication regimen. Please continue these medications as prescribed. Please continue to take prednisone and Levaquin as prescribed. Please continue to use continuous home oxygen therapy. Please seek medical help immediately if you experience any acute bleeding. Stop Eliquis use if you have any acute bleeding. Please resume all your other home medications as prescribed by her primary care physician. Please continue to closely monitor blood pressure at home. - Diet and Activity Activity: resume usual activities as tolerated Diet: diabetic diet Hospital course: Mr. Garrett is a 71 year old male with past medical history of COPD on home oxygen , CVA, diabetes, hypertension, hyperlipidemia, obesity who was admitted for management of acute respiratory failure secondary to COPD exacerbation/pneumonia , new onset A. fib with RVR. Patient was started on empiric IV antibiotics and IV steroids. He was also followed by cardiology for atrial fibrillation. He was started on Cardizem by mouth and anticoagulated with Eliquis. Patient was also noted to be not compliant with his home oxygen therapy and continued to remain resistant throughout his hospitalization when it came to using his oxygen therapy. Overall he improved with IV antibiotics, steroids, and rate control was achieved with Cardizem and metoprolol. He was also evaluated by physical therapy and home health was recommended. director of maternity services were consulted for arrangement of home health services. At this time patient is hemodynamically stable without any respiratory distress and will be discharged to home with follow-up with his PCP and cardiology. - Time Spent with Patient Total time spent providing and/or coordinating discharge services: Greater than 30 minutes - Constitutional Vitals: Temp Pulse Resp BP Pulse Ox 98.0 F 82 18 127/95 95 09/03/16 07:06 09/03/16 10:48 09/03/16 10:48 09/03/16 10:48 09/03/16 10:48 General appearance: Present: A&O X 3, morbidly obese, pleasant, no acute distress, answers questions appropriately - Head Head exam: Present: atraumatic, normocephalic - Eye Eye exam: Present: normal appearance, conjuntiva pink, sclera anicteric - Respiratory Respiratory exam: Absent: respiratory distress, wheezes - Cardiovascular Cardiovascular exam: Present: RRR, +S1, +S2 - GI/Abdominal GI/Abdominal exam: Present: normal bowel sounds, soft, no peritoneal signs. Absent: distended, tenderness - Extremities Exam Extremities exam: Present: pedal edema, warm, radial pulses palpable and symetrical. Absent: calf tenderness, tenderness - Neurological Exam Neurological exam: Present: alert, oriented X3 - Psychiatric Psychiatric exam: Present: normal affect, normal mood
--- NOTE | 2016-09-03 11:49 | Physician Discharge Referral ---
Home Health/Hosp Referral Info Transfer to: Home Health Provider in Charge Post Discharge: PCP - Diagnosis (1) Atrial fibrillation Priority: Primary Status: Acute (2) Acute exacerbation of chronic obstructive airways disease Priority: Primary Status: Acute (3) Pneumonia Priority: Primary Status: Acute (4) Diabetes mellitus Priority: Secondary Status: Acute (5) HTN (hypertension) Priority: Secondary Status: Acute (6) Morbid obesity Priority: Secondary Status: Chronic (7) DVT prophylaxis Priority: Secondary Status: Acute (8) Lower extremity edema Priority: Secondary Status: Acute - Respiratory Orders Oxygen / L per min Smoking Cessation: Smoking cessation has been advised. For more information, call the [place] Tobacco Quit Line at 5-806-KABQNOW. - Services Needed Following services are medically necessary services: Nursing, Home Health Aide, Physical Therapy, Occupational Therapy - Transfer Medications Prescriptions: Apixaban [Eliquis] 5 mg PO BID #60 tablet Diltiazem CD (24hr) [Cardizem CD] 240 mg PO DAILY #30 cap.er.24h Levofloxacin [Levaquin] 500 mg PO DAILY #4 tablet Metoprolol XL (24 HR) Succ [Toprol Xl] 50 mg PO DAILY #60 tab.er.24h PredniSONE 40 mg PO DAILY #7 tablet Home Medications: Aspirin [Lo-Dose Aspirin EC] 81 mg PO DAILY 08/29/16 [History] Fluticasone/Vilanterol [Breo Ellipta 200-25 Mcg INH] 1 puff IH DAILY 08/29/16 [ History] Gemfibrozil 600 mg PO BID 08/29/16 [History] Glimepiride [Amaryl] 2 mg PO BID 08/29/16 [History] Guaifen/Phenyleph/Acetaminophn [Sudafed PE [id number]] 1 tab PO BID 12/10 [History] Guaifenesin [Mucinex] 600 mg PO BID 08/29/16 [History] Insulin Glargine,Hum.rec.anlog [Lantus Solostar] 65 unit SQ QAM 08/29/16 [ History] Ipratropium/Albuterol Neb [Duoneb] 3 ml IH Q4HR 08/29/16 [History] Loratadine [Claritin] 10 mg PO DAILY 08/29/16 [History] Losartan/HCTZ [Hyzaar 50-12.5 Tablet] 1 tab PO DAILY 08/29/16 [History] Pravastatin Sodium [Pravachol] 80 mg PO DAILY 08/29/16 [History] Tiotropium [place] [Spiriva] 18 mcg IH DAILY 08/29/16 [History] Apixaban [Eliquis] 5 mg PO BID #60 tablet 09/03/16 [Rx] Diltiazem CD (24hr) [Cardizem CD] 240 mg PO DAILY #30 cap.er.24h 09/03/16 [Rx] Levofloxacin [Levaquin] 500 mg PO DAILY #4 tablet 09/03/16 [Rx] Metoprolol XL (24 HR) Succ [Toprol Xl] 50 mg PO DAILY #60 tab.er.24h 09/03/16 [ Rx] PredniSONE 40 mg PO DAILY #7 tablet 09/03/16 [Rx] Allergies/Adverse Reactions: Allergies No Known Allergies Allergy (Verified 08/29/16 07:09) Certification: Further, I certify that my clinical findings support that this patient is homebound (i.e. absences from home require considerable and taxing effort and are for medical reasons or orthodoxy services or infrequently or short duration when for other reasons) because: Homebound Reason: Patient requires assistance of a person or device to safely leave home Attestation: My signature below is to certify that this patient is under my care and that I, or nurse practitioner, or a physician's resident assistant cna working with me, has a face-to -face encounter with this patient.
[2016-09-03] MEDS ORDERED: Aminoglycoside Consult 1 EACH MC ONE (12:35)
[2016-09-04] MEDS ORDERED: Vancomycin 1,000 MG in D5% in Water 250 ML IVPB SCH (08:00)
== END 2016-09-03 12:36 | disposition home health service (06) | DRG 308 ==
LOC: 3ANU 06:44 → EMEROO 06:44 → 3ANU 09:15 → SUATTDRO 10:52 → 2NNU 08-30 13:58
PROVIDERS: ADMIT Internal Medicine Endocrinology, Diabetes & Metabolism; ATTEND Internal Medicine

== ENCOUNTER 2016-10-12 12:48 | Inpatient (IN) ==
[2016-10-12] MEDS ORDERED: Ipratropium/Albuterol Neb 3 ML IH ONE ×2 (13:03→14:19)
--- NOTE | 2016-10-12 13:06 | Emergency Department Note ---
Disposition Clinical Impression: Acute exacerbation of chronic obstructive airways disease, Hypoxia Disposition: Admitted As Inpatient Condition: Fair Referrals: Christoph,Raphael Palm MD [Primary Care Provider] - Forms: ED Satisfaction Letter SOB HPI - General Chief Complaint: ED Shortness of Breath/Dyspnea Stated Complaint: JADE Time Seen by Provider: 10/12/16 13:02 Source: patient, family Limitations: no limitations Nursing Notes Reviewed: Yes Vital Signs Reviewed: Yes - Related Data Home Medications Medication Instructions Recorded Confirmed Fluticasone/Vilanterol [Breo 1 puff IH DAILY 08/29/16 10/12/16 Ellipta 200-25 Mcg INH] Gemfibrozil 600 mg PO BID 08/29/16 10/12/16 Glimepiride [Amaryl] 2 mg PO BID 08/29/16 10/12/16 Insulin Glargine,Hum.rec.anlog 65 unit SQ QAM 08/29/16 10/12/16 [Lantus Solostar] Ipratropium/Albuterol Neb [Duoneb] 3 ml IH Q4HR 08/29/16 10/12/16 Loratadine [Claritin] 10 mg PO DAILY 08/29/16 10/12/16 Losartan/HCTZ [Hyzaar 50-12.5 1 tab PO DAILY 08/29/16 10/12/16 Tablet] Pravastatin Sodium [Pravachol] 80 mg PO HS 08/29/16 10/12/16 Tiotropium [place] [Spiriva] 18 mcg IH DAILY 08/29/16 10/12/16 Albuterol Neb [Proventil Neb] 2.5 mg IH Q4HR 10/12/16 10/12/16 Albuterol Sulfate [Albuterol 2 puff IH Q4-6H PRN 10/12/16 10/12/16 Inhaler] Metoprolol XL (24 HR) Succ [Toprol 50 mg PO DAILY 10/12/16 10/12/16 XL] Previous Rx's Medication Instructions Recorded Apixaban [Eliquis] 5 mg PO BID #60 tablet 09/03/16 Diltiazem CD (24hr) [Cardizem CD] 240 mg PO DAILY #30 cap.er.24h 09/03/16 Allergies Allergy/AdvReac Type Severity Reaction Status Date / Time No Known Allergies Allergy Verified 08/29/16 07:09 Past Medical History - Past Medical History Medical history: Reports: COPD, CVA, diabetes, hyperlipidemia, hypertension Surgical history: Reports: no surgical history - Social History Smoking Status: Former smoker Smokeless Tobacco Status: No Alcohol use: Reports: none Drug use: Reports: none Physical Exam - General Limitations: no limitations General appearance: alert, in no apparent distress Course Vital Signs Temperature 99.7 F H 10/12/16 12:49 Pulse Rate 101 10/12/16 12:49 Respiratory Rate 20 10/12/16 12:49 Blood Pressure 107/70 10/12/16 12:49 O2 Sat by Pulse Oximetry 90 10/12/16 12:49 Temperature 99.7 F H 10/12/16 12:49 Pulse Rate 95 10/12/16 14:43 Respiratory Rate 11 10/12/16 14:43 Blood Pressure 128/83 10/12/16 14:43 O2 Sat by Pulse Oximetry 95 10/12/16 14:43 Oxygen Delivery Oxygen Delivery Aerosol Mask Shortness of Breath/Dyspnea - [facility] Narrative Medical decision making narrative: I examined this patient and my medical decision-making was reviewed with the TRIM ATTACHER/PA/Advanced Practice Nurse/Resident Physician. I agree with the documented findings, disposition and treatment plan as described except to the extent set forth below. Patient seen on arrival with Dr. Moses and myself, agree with his evaluation and management plan, supravascular the patient's stay. Patient presents today with dyspnea. No chest pain. Conversational dyspneic throughout the 2 words. Does not edema in his lower extremities rented a workup on an by mouth's and Xarelto. Minimal reassess. He may need admission. He is in agreement with this plan. 1330 hrs. admitting on chest x-ray. Patient's labs are coming back and looked good at this time. He is feeling somewhat better. We will reassess once his chest x-ray is back. 1400 hrs.: Patient is better but still getting hypoxic. Like to bring him into the hospital he is in agreement. Speaking with hospitalist for admission. Critical care time excluding any separately billable procedures is 35 minutes. - Lab Data Result diagrams: 10/12/16 13:19 10/12/16 13:19 Lab Results 10/12/16 10/12/16 10/12/16 Range/Units 13:19 13:19 13:19 WBC 11.0 (4.3-11.1) K/mcL RBC 3.77 L (4.19-5.50) M/mcL Hgb 10.0 L (12.9-16.9) g/dL Hct 32.1 L (37.5-50.1) % MCV 85.1 (83.0-100.0) fL MCH 26.5 L (28.0-33.3) pg MCHC 31.2 L (31.6-35.5) g/dL RDW 14.9 H (11.5-14.5) % Plt Count 237 (140-400) K/mcL MPV 9.0 L (9.4-12.4) fL Immature Gran % 0.5 (0-4) % Seg Neutrophils % 68.9 % Lymphocytes % 22.9 % Monocytes % 7.2 % Eosinophils % 0.3 % Basophils % 0.2 % Neutrophils # 7.6 (1.6-8.9) K/mcL Lymphocytes # 2.5 (0.6-4.6) K/mcL Monocytes # 0.8 (0.0-1.3) K/mcL Eosinophils # 0.0 (0.0-0.6) K/mcL Basophils # 0.0 (0.0-0.2) K/mcL PT 18.5 H (9.4-12.1) Seconds INR 1.7 APTT 38.4 H (26.0-36.0) Seconds Sodium 139 (136-145) mEq/L Potassium 3.6 (3.5-4.5) mEq/L Chloride 106 (98-109) mEq/L Carbon Dioxide 23 (19-29) mEq/L BUN 16 (8-26) mg/dL Creatinine 1.45 H (0.72-1.25) mg/dL Est GFR ( Amer) 58 L (> 60) Est GFR (Non-Af Amer) 48 L (> 60) BUN/Creatinine Ratio 11 (6-26) Glucose 158 H (70-99) mg/dL Calculated Osmolality 292 (280-300) Calcium 9.3 (8.6-10.8) mg/dL Troponin I (0-0.03) ng/mL B-Natriuretic Peptide (0-100) pg/mL Urine Color (Yellow) Urine Clarity (Clear) Urine pH (5.0-8.0) pH Units Ur Specific [place] (1.010-1.025) Urine Protein (Neg-Trace) mg/dL Urine Glucose (UA) (Normal) mg/dL Urine Ketones (Negative) mg/dL Urine Blood (Negative) Urine Nitrite (Negative) Urine Bilirubin (Negative) Urine Urobilinogen (Normal) mg/dL Ur Leukocyte Esterase (Negative) Urine Microscopic RBC (0-3) per hpf Urine Microscopic WBC (0-3) per hpf Ur Squamous Epith Cells (None-Few) per lpf Calcium Oxalate Crystal Urine Bacteria (None-Few) per hpf Hyaline Casts (None-Few) per lpf Ur Culture Indicated? (NO) 10/12/16 10/12/16 10/12/16 Range/Units 13:19 13:19 13:40 WBC (4.3-11.1) K/mcL RBC (4.19-5.50) M/mcL Hgb (12.9-16.9) g/dL Hct (37.5-50.1) % MCV (83.0-100.0) fL MCH (28.0-33.3) pg MCHC (31.6-35.5) g/dL RDW (11.5-14.5) % Plt Count (140-400) K/mcL MPV (9.4-12.4) fL Immature Gran % (0-4) % Seg Neutrophils % % Lymphocytes % % Monocytes % % Eosinophils % % Basophils % % Neutrophils # (1.6-8.9) K/mcL Lymphocytes # (0.6-4.6) K/mcL Monocytes # (0.0-1.3) K/mcL Eosinophils # (0.0-0.6) K/mcL Basophils # (0.0-0.2) K/mcL PT (9.4-12.1) Seconds INR APTT (26.0-36.0) Seconds Sodium (136-145) mEq/L Potassium (3.5-4.5) mEq/L Chloride (98-109) mEq/L Carbon Dioxide (19-29) mEq/L BUN (8-26) mg/dL Creatinine (0.72-1.25) mg/dL Est GFR ( Amer) (> 60) Est GFR (Non-Af Amer) (> 60) BUN/Creatinine Ratio (6-26) Glucose (70-99) mg/dL Calculated Osmolality (280-300) Calcium (8.6-10.8) mg/dL Troponin I 0.00 (0-0.03) ng/mL B-Natriuretic Peptide 17 (0-100) pg/mL Urine Color Dark Yellow (Yellow) Urine Clarity Cloudy A (Clear) Urine pH 6.0 (5.0-8.0) pH Units Ur Specific [place] 1.022 (1.010-1.025) Urine Protein 100 H (Neg-Trace) mg/dL Urine Glucose (UA) Normal (Normal) mg/dL Urine Ketones Negative (Negative) mg/dL Urine Blood Negative (Negative) Urine Nitrite Negative (Negative) Urine Bilirubin Small H (Negative) Urine Urobilinogen Normal (Normal) mg/dL Ur Leukocyte Esterase Negative (Negative) Urine Microscopic RBC 3-5 H (0-3) per hpf Urine Microscopic WBC 5-15 H (0-3) per hpf Ur Squamous Epith Cells Many H (None-Few) per lpf Calcium Oxalate Crystal Present Urine Bacteria Few (None-Few) per hpf Hyaline Casts Few (None-Few) per lpf Ur Culture Indicated? YES A (NO)
--- NOTE | 2016-10-12 13:12 | Emergency Department Note ---
Disposition Clinical Impression: Acute exacerbation of chronic obstructive airways disease, Hypoxia Disposition: Admitted As Inpatient Condition: Fair Referrals: Christoph,Raphael Palm MD [Primary Care Provider] - Forms: ED Satisfaction Letter Time of Disposition: 14:34 SOB HPI - General Chief Complaint: ED Shortness of Breath/Dyspnea Stated Complaint: JADE Time Seen by Provider: 10/12/16 13:02 Source: patient, family Mode of arrival: ambulatory Limitations: no limitations Nursing Notes Reviewed: Yes Vital Signs Reviewed: Yes - History of Present Illness Patient presents to the ED if the chief complaint of "I cannot breathe." Patient reports that he was admitted for pneumonia and COPD exacerbation recently. Has been getting sick again for the last week. States he woke up today and could not breathe. No chest pain. He is being evaluated by cardiology and Dr. John for coronary artery disease. No stents, but states he is scheduled to get a stress test and an echo soon. No history of DVT or PE , but does have a history of atrial fibrillation and is on Xarelto. States he just really does not feel well. Has had a productive cough as well. No fevers , chills, chest pain, abdominal pain, nausea, vomiting, pain or swelling in his legs. - Related Data Home Medications Medication Instructions Recorded Confirmed Aspirin [Lo-Dose Aspirin EC] 81 mg PO DAILY 08/29/16 08/29/16 Fluticasone/Vilanterol [Breo 1 puff IH DAILY 08/29/16 08/29/16 Ellipta 200-25 Mcg INH] Gemfibrozil 600 mg PO BID 08/29/16 08/29/16 Glimepiride [Amaryl] 2 mg PO BID 08/29/16 08/29/16 Guaifen/Phenyleph/Acetaminophn 1 tab PO BID 08/29/16 08/29/16 [Sudafed PE Uiyayuyd-Guaj-Pozgr] Guaifenesin [Mucinex] 600 mg PO BID 08/29/16 08/29/16 Insulin Glargine,Hum.rec.anlog 65 unit SQ QAM 08/29/16 08/29/16 [Lantus Solostar] Ipratropium/Albuterol Neb [Duoneb] 3 ml IH Q4HR 08/29/16 08/29/16 Loratadine [Claritin] 10 mg PO DAILY 08/29/16 08/29/16 Losartan/HCTZ [Hyzaar 50-12.5 1 tab PO DAILY 08/29/16 08/29/16 Tablet] Pravastatin Sodium [Pravachol] 80 mg PO DAILY 08/29/16 08/29/16 Tiotropium [place] [Spiriva] 18 mcg IH DAILY 08/29/16 08/29/16 Previous Rx's Medication Instructions Recorded Apixaban [Eliquis] 5 mg PO BID #60 tablet 09/03/16 Diltiazem CD (24hr) [Cardizem CD] 240 mg PO DAILY #30 cap.er.24h 09/03/16 Levofloxacin [Levaquin] 500 mg PO DAILY #4 tablet 09/03/16 Metoprolol XL (24 HR) Succ [Toprol 50 mg PO DAILY #60 tab.er.24h 09/03/16 Xl] PredniSONE 40 mg PO DAILY #7 tablet 09/03/16 Allergies Allergy/AdvReac Type Severity Reaction Status Date / Time No Known Allergies Allergy Verified 08/29/16 07:09 All systems ED: reviewed and negative except as stated. Cardiovascular: Reports: dyspnea on exertion, paroxysmal nocturnal dyspnea Respiratory: Reports: cough, dyspnea, sputum production Endocrine: Reports: fatigue Past Medical History - Past Medical History Attestation: Yes The following information was validated with the patient. Source: patient Medical history: Reports: COPD, CVA, diabetes, hyperlipidemia, hypertension Surgical history: Reports: no surgical history - Social History Smoking Status: Former smoker Smokeless Tobacco Status: No Alcohol use: Reports: none Drug use: Reports: none Physical Exam - General Limitations: no limitations General appearance: alert, in no apparent distress - Head Head exam: atraumatic, normocephalic, normal inspection - Eye Eye exam: Present: normal appearance, PERRL, EOMI - ENT ENT exam: normal exam, normal oropharynx, mucous membranes moist - Chest Chest inspection: Present: normal inspection, symmetric chest wall rise - Respiratory Respiratory exam: Present: respiratory distress (Mild to moderate with abdominal muscle use), other (Rhonchi in left lower lobe). Absent: normal lung sounds bilaterally - Cardiovascular Cardiovascular exam: Present: regular rate, irregular rhythm. Absent: normal rhythm - Abdominal Exam Abdominal exam: Present: soft, Non-Tender, other (obese) - Extremities Exam Extremities exam: Present: normal inspection, full ROM, normal capillary refill. Absent: tenderness, pedal edema - Neurological Exam Neurological exam: Present: alert, oriented X3 - Psychiatric Psychiatric exam: Present: anxious - Skin Skin exam: Present: warm, dry, intact, normal color Course Course Narrative: 71-year-old male presenting with shortness of breath. History of coronary artery disease, but no stents or bypasses. History of COPD, recent admission for bronchitis and COPD exacerbation with potential pneumonia. Presenting now for difficulty breathing. Patient in mild respiratory distress. Lungs are mostly clear with good aeration, but does have rhonchi in left lower lobe. Workup initiated likely admission. - Reevaluation(s) Reevaluation #1: Workup is back. No pneumonia on chest x-ray. Labs relatively normal. Slight renal insufficiency compared to baseline. We will admit for COPD exacerbation and hypoxia. Patient supposed to see pulmonology today as OP. At this time, but will be admitted. Vital Signs Temperature 99.7 F H 10/12/16 12:49 Pulse Rate 101 10/12/16 12:49 Respiratory Rate 20 10/12/16 12:49 Blood Pressure 107/70 10/12/16 12:49 O2 Sat by Pulse Oximetry 90 10/12/16 12:49 Temperature 99.7 F H 10/12/16 12:49 Pulse Rate 103 10/12/16 13:06 Respiratory Rate 21 10/12/16 13:19 Blood Pressure 128/83 10/12/16 13:06 O2 Sat by Pulse Oximetry 93 10/12/16 13:19 Oxygen Delivery Oxygen Delivery Nasal Cannula Shortness of Breath/Dyspnea - Medical Records Medical records reviewed: Yes I reviewed the patient's medical records. - Lab Data Lab results reviewed: Yes I reviewed the patient's lab results. Result diagrams: 10/12/16 13:19 10/12/16 13:19 Lab Results 10/12/16 10/12/16 10/12/16 Range/Units 13:19 13:19 13:19 WBC 11.0 (4.3-11.1) K/mcL RBC 3.77 L (4.19-5.50) M/mcL Hgb 10.0 L (12.9-16.9) g/dL Hct 32.1 L (37.5-50.1) % MCV 85.1 (83.0-100.0) fL MCH 26.5 L (28.0-33.3) pg MCHC 31.2 L (31.6-35.5) g/dL RDW 14.9 H (11.5-14.5) % Plt Count 237 (140-400) K/mcL MPV 9.0 L (9.4-12.4) fL Immature Gran % 0.5 (0-4) % Seg Neutrophils % 68.9 % Lymphocytes % 22.9 % Monocytes % 7.2 % Eosinophils % 0.3 % Basophils % 0.2 % Neutrophils # 7.6 (1.6-8.9) K/mcL Lymphocytes # 2.5 (0.6-4.6) K/mcL Monocytes # 0.8 (0.0-1.3) K/mcL Eosinophils # 0.0 (0.0-0.6) K/mcL Basophils # 0.0 (0.0-0.2) K/mcL PT 18.5 H (9.4-12.1) Seconds INR 1.7 APTT 38.4 H (26.0-36.0) Seconds Sodium 139 (136-145) mEq/L Potassium 3.6 (3.5-4.5) mEq/L Chloride 106 (98-109) mEq/L Carbon Dioxide 23 (19-29) mEq/L BUN 16 (8-26) mg/dL Creatinine 1.45 H (0.72-1.25) mg/dL Est GFR ( Amer) 58 L (> 60) Est GFR (Non-Af Amer) 48 L (> 60) BUN/Creatinine Ratio 11 (6-26) Glucose 158 H (70-99) mg/dL Calculated Osmolality 292 (280-300) Calcium 9.3 (8.6-10.8) mg/dL Troponin I (0-0.03) ng/mL B-Natriuretic Peptide (0-100) pg/mL Urine Color (Yellow) Urine Clarity (Clear) Urine pH (5.0-8.0) pH Units Ur Specific [place] (1.010-1.025) Urine Protein (Neg-Trace) mg/dL Urine Glucose (UA) (Normal) mg/dL Urine Ketones (Negative) mg/dL Urine Blood (Negative) Urine Nitrite (Negative) Urine Bilirubin (Negative) Urine Urobilinogen (Normal) mg/dL Ur Leukocyte Esterase (Negative) Urine Microscopic RBC (0-3) per hpf Urine Microscopic WBC (0-3) per hpf Ur Squamous Epith Cells (None-Few) per lpf Calcium Oxalate Crystal Urine Bacteria (None-Few) per hpf Hyaline Casts (None-Few) per lpf Ur Culture Indicated? (NO) 10/12/16 10/12/16 10/12/16 Range/Units 13:19 13:19 13:40 WBC (4.3-11.1) K/mcL RBC (4.19-5.50) M/mcL Hgb (12.9-16.9) g/dL Hct (37.5-50.1) % MCV (83.0-100.0) fL MCH (28.0-33.3) pg MCHC (31.6-35.5) g/dL RDW (11.5-14.5) % Plt Count (140-400) K/mcL MPV (9.4-12.4) fL Immature Gran % (0-4) % Seg Neutrophils % % Lymphocytes % % Monocytes % % Eosinophils % % Basophils % % Neutrophils # (1.6-8.9) K/mcL Lymphocytes # (0.6-4.6) K/mcL Monocytes # (0.0-1.3) K/mcL Eosinophils # (0.0-0.6) K/mcL Basophils # (0.0-0.2) K/mcL PT (9.4-12.1) Seconds INR APTT (26.0-36.0) Seconds Sodium (136-145) mEq/L Potassium (3.5-4.5) mEq/L Chloride (98-109) mEq/L Carbon Dioxide (19-29) mEq/L BUN (8-26) mg/dL Creatinine (0.72-1.25) mg/dL Est GFR ( Amer) (> 60) Est GFR (Non-Af Amer) (> 60) BUN/Creatinine Ratio (6-26) Glucose (70-99) mg/dL Calculated Osmolality (280-300) Calcium (8.6-10.8) mg/dL Troponin I 0.00 (0-0.03) ng/mL B-Natriuretic Peptide 17 (0-100) pg/mL Urine Color Dark Yellow (Yellow) Urine Clarity Cloudy A (Clear) Urine pH 6.0 (5.0-8.0) pH Units Ur Specific [place] 1.022 (1.010-1.025) Urine Protein 100 H (Neg-Trace) mg/dL Urine Glucose (UA) Normal (Normal) mg/dL Urine Ketones Negative (Negative) mg/dL Urine Blood Negative (Negative) Urine Nitrite Negative (Negative) Urine Bilirubin Small H (Negative) Urine Urobilinogen Normal (Normal) mg/dL Ur Leukocyte Esterase Negative (Negative) Urine Microscopic RBC 3-5 H (0-3) per hpf Urine Microscopic WBC 5-15 H (0-3) per hpf Ur Squamous Epith Cells Many H (None-Few) per lpf Calcium Oxalate Crystal Present Urine Bacteria Few (None-Few) per hpf Hyaline Casts Few (None-Few) per lpf Ur Culture Indicated? YES A (NO) - Radiology Data Radiology results reviewed: Yes I reviewed the patient's radiology results. - EKG Data EKG attestation: Yes I reviewed and interpreted this EKG. EKG results narrative: Sinus rhythm, rate 99, IA interval 159, QRS 86, QTc 384, normal axis Critical Care Time Critical Care Time: Yes Total Critical Care Time: 30 Attestation: Critical care performed: Time is exclusive of separately billable procedures. Time includes: direct patient care, patient reassessment, coordination of patient care, interpretation of data (laboratory data, radiology data, and respiratory data), review of patient's medical records, medical consultation and documentation of patient care. Procedures included in critical care time: Procedures excluded from critical care time: Fannie - Fannie Situation: Demographics, MOA Background: Presenting Complaint, Relevant PMH, Meds, & Allergies Assessment: Vital Signs, Course and respsone to treatment, Exam Concerns, Patient/Family Expectation, Pertinant Lab Results, Outstanding Labs Recommendation: Recommendation based on pending studies, treatments, or consults Fannie Report Given to: Dr. Vitaliy Greco Repor Time: 14:33
[2016-10-12 13:25] LABS: Basophils % 0.2 %; Eosinophils % 0.3 %; Hematocrit 32.1 % (37.5-50.1); Immature Granulocytes % 0.5 % (0-4); Lymphocytes # 2.5 K/mcL (0.6-4.6); Lymphocytes % 22.9 %; Mean Corpuscular HGB Conc 31.2 g/dL (31.6-35.5); Mean Corpuscular Hemoglobin 26.5 pg (28.0-33.3); Mean Corpuscular Volume 85.1 fL (83.0-100.0); Monocytes # 0.8 K/mcL (0.0-1.3); Monocytes % 7.2 %; Neutrophils # 7.6 K/mcL (1.6-8.9); Platelet Count 237 K/mcL (140-400); Red Blood Count 3.77 M/mcL (4.19-5.50); Red Cell Distribution Width 14.9 % (11.5-14.5); Segmented Neutrophils % 68.9 %
[2016-10-12 13:31] LABS: INR 1.7; Prothrombin Time 18.5 Seconds (9.4-12.1)
[2016-10-12 13:33] LABS: Activated Partial Thrombo Time 38.4 Seconds (26.0-36.0)
[2016-10-12 13:37] LABS: Calcium 9.3 mg/dL (8.6-10.8); Potassium 3.6 mEq/L (3.5-4.5)
[2016-10-12 13:48] LABS: Bilirubin,Urine Small (Negative); Blood,Urine Negative (Negative); Clarity,Urine Cloudy (Clear); Color,Urine Dark Yellow (Yellow); Glucose,Urine (UA) Normal (Normal); Ketones,Urine Negative (Negative); Leukocyte Esterase,Urine Negative (Negative); Nitrite,Urine Negative (Negative); Protein,Urine 100 mg/dL (Neg-Trace); Specific Gravity,Urine 1.022 (1.010-1.025); Urobilinogen,Urine Normal (Normal)
[2016-10-12 13:49] LABS: Squamous Epithelial Cell,Urine Many per lpf (None-Few)
[2016-10-12 14:03] LABS: Bacteria,Urine Few per hpf (None-Few); Calcium Oxalate Crystals,Urine Present; Hyaline Casts,Urine Few per lpf (None-Few)
[2016-10-12] MEDS ORDERED: methylPREDNISolone 125 MG/2 ML VIAL IVP ONE (14:20)
--- NOTE | 2016-10-12 15:53 | Event Note ---
Date of Encounter: 10/12/16 Time of Encounter: 15:51 Patient seen and examined with nurse justin. Acute COPD exacerbation. We will give IV steroids, q 4h nebulizer treatment and IV Levaquin for acute bronchitis. no obvious pneumonia on x-ray. Continuous telemetry monitoring. inpatient admission. expected hospital stay 2 to 3 days. Full code.
[2016-10-12] MEDS ORDERED: Naloxone 0.4 MG/ML INJ IVP PRN (15:56)
[2016-10-12] MEDS ORDERED: Albuterol 2.5 MG/3 ML NEBULIZER IH PRN (16:14)
[2016-10-12] MEDS ORDERED: 0.9 % Sodium Chloride 1,000 ML IVC SCH (16:15)
[2016-10-12] MEDS ORDERED: D5% in Water 1,000 ML IVC PRN (16:21)
[2016-10-12] MEDS ORDERED: *HR* Dextrose 50 % in Water (Syg) 50 ML SYRINGE IVP PRN (16:21)
[2016-10-12] MEDS ORDERED: Dextrose Gel 15 GM PO PRN ×2 (16:21)
--- NOTE | 2016-10-12 16:24 | Internal Med History&Physical ---
Date of Encounter: 10/12/16 Time of Encounter: 15:00 Assessment and Plan (1) Acute exacerbation of chronic obstructive airways disease Current visit: No Status: Acute 1 continue with oxygen titrated to maintain SPO2 greater than 92% 2 continue with bronchodilators 3 continue Solu-Medrol steroid taper 4 Levaquin 5 obtain influenza swab due to recent illness exposure (2) HTN (hypertension) Current visit: No Status: Chronic 1 we will hold Cozaar and hydrochlorothiazide for now due to elevation in creatinine we will resume once creatinine back to baseline. Continue with metoprolol 2 low sodium diet Qualifiers: Hypertension type: essential hypertension Qualified Code(s): I10 - Essential (primary) hypertension (3) Atrial fibrillation Current visit: No Status: Acute 1 presently in sinus rhythm will continue with metoprolol as well as eliquis 2 continuous cardiac monitoring Qualifiers: Atrial fibrillation type: paroxysmal Qualified Code(s): I48.0 - Paroxysmal atrial fibrillation (4) Diabetes mellitus Current visit: No Status: Acute 1 Accu-Cheks before meals and at bedtime we will continue with basal insulin as well as sliding scale goals to maintain postprandial less than 180 2 diabetic diet Qualifiers: Diabetes mellitus type: type 2 Diabetes mellitus complication status: with unspecified complications Diabetes mellitus fci insulin use: with terminologist use Qualified Code(s): E11.8 - Type 2 diabetes mellitus with unspecified complications; Z79.4 - custodial (current) use of insulin (5) CRISTOBAL (acute kidney injury) Current visit: Yes Status: Acute 1 creatinine on presentation was 1.45 which is up from baseline which appears to be around 1.2-1. We will continue to monitor creatinine 2 we will give gentle IV fluids overnight 3 monitor intake and output 4 we will hold losartan/hydrochlorothiazide for now 5 avoid nephrotoxins (6) DVT prophylaxis Current visit: No Status: Acute 1 on eliquis Internal Medicine - H&P: HPI Chief complaint: SOB Admitted From: Emergency Dept Plans for Post Hospital Care: Home History of present illness: Mr. Garrett is a 71 year old male past history of COPD oxygen dependent CVA diabetes type 2 hyperlipidemia hypertension paroxysmal atrial fibrillation. Continue the patient is using increasing shortness of breath for the past week. Despite 2.5 liters continuous oxygen as well breathing treatment his shortness of breath has not improved. He is having difficulty sleeping at night waking up frequently and she has noticed increased wheezing. He does have a cough which she states is chronic no change in sputum production he denies any fevers or chills. He does admit to recent exposure to illness, his has had an upper respiratory infection. This morning patient states his shortness of breath had worsened he was unable to walk 10 steps without becoming short of breath. He presented to the ER with the above complaints. According to ER records chest x-ray revealed minimal atelectasis in the right midlung no leukocytosis troponin was 0 BNP is 17 was noted that his creatinine was 1.45, O2 saturation on presentation was 90% is afebrile patient was given duo nebs as well as IV steroids and has been admitted for further workup and evaluation. patient does not appear to be a restaurant distress he denies any chest pain or shortness of breath Past Med Surg Social Fam HX - Past Medical History Medical history: COPD, CVA, diabetes, hyperlipidemia, hypertension - Past Surgical History Surgical History: no surgical history - Social History Smoking Status: Former smoker Smokeless Tobacco Status: No Alcohol use: none Drug use: none - Additional Family History Additional family history: Reviewed noncontributory Internal Medicine - H&P: Meds Fluticasone/Vilanterol [Breo Ellipta 200-25 Mcg INH] 1 puff IH DAILY 08/29/16 [ History] Gemfibrozil 600 mg PO BID 08/29/16 [History] Glimepiride [Amaryl] 2 mg PO BID 08/29/16 [History] Insulin Glargine,Hum.rec.anlog [Lantus Solostar] 65 unit SQ QAM 08/29/16 [ History] Ipratropium/Albuterol Neb [Duoneb] 3 ml IH Q4HR 08/29/16 [History] Loratadine [Claritin] 10 mg PO DAILY 08/29/16 [History] Losartan/HCTZ [Hyzaar 50-12.5 Tablet] 1 tab PO DAILY 08/29/16 [History] Pravastatin Sodium [Pravachol] 80 mg PO HS 08/29/16 [History] Tiotropium [place] [Spiriva] 18 mcg IH DAILY 08/29/16 [History] Apixaban [Eliquis] 5 mg PO BID #60 tablet 09/03/16 [Rx] Diltiazem CD (24hr) [Cardizem CD] 240 mg PO DAILY #30 cap.er.24h 09/03/16 [Rx] Albuterol Neb [Proventil Neb] 2.5 mg IH Q4HR 10/12/16 [History] Albuterol Sulfate [Albuterol Inhaler] 2 puff IH Q4-6H PRN 10/12/16 [History] Metoprolol XL (24 HR) Succ [Toprol XL] 50 mg PO DAILY 10/12/16 [History] Allergies No Known Allergies Allergy (Verified 08/29/16 07:09) All Systems PM: A 10-system review of systems was performed and is negative for pertinent findings except as documented above in the HPI. - Constitutional Constitutional: no chills, no fever(s), no night sweats - Cardiovascular Cardiovascular ROS IM: dyspnea, dyspnea on exertion, edema, no chest pain, no diaphoresis, no lightheadedness, no palpitations, no syncope - Respiratory Respiratory: cough, dyspnea, dyspnea on exertion, wheezing, no excessive phlegm production - Gastrointestinal Gastrointestinal: no abdominal pain, no diarrhea, no hematemesis, no hematochezia, no melena, no nausea, no vomiting - Musculoskeletal Musculoskeletal ROS IM: no numbness, no tingling - Integumentary Integumentary IM: no rash, no unusual bruising - Neurological Neurological ROS: no confusion, no convulsions, no focal weakness, no numbness, no tingling, no tremor(s) - Constitutional Vitals: Temp Pulse Resp BP Pulse Ox 99.7 F H 95 11 128/83 95 10/12/16 12:49 10/12/16 14:43 10/12/16 15:57 10/12/16 15:57 10/12/16 14:43 General appearance: Present: A&O X 3, answers questions appropriately - Head Head exam: Present: atraumatic, normocephalic - Neck Neck exam general surgery: Present: supple, trachea midline. Absent: lymphadenopathy - Respiratory Respiratory exam: Present: wheezes. Absent: accessory muscle use, rales, rhonchi - Cardiovascular Cardiovascular exam: Present: RRR, +S1, +S2. Absent: diastolic murmur, gallop, rubs, systolic murmur - GI/Abdominal GI/Abdominal exam: Present: normal bowel sounds, soft, no peritoneal signs. Absent: distended, tenderness - Extremities Exam Extremities exam: Present: pedal edema, warm, radial pulses palpable and symetrical. Absent: calf tenderness, cyanotic - Neurological Exam Neurological exam: Present: CN II-XII intact, oriented X3, no focal deficits. Absent: pronater drift, facial droop, speech deficit - Skin Skin exam: Present: dry, intact Internal Med - H&P Results - Labs CBC & Chem 7: 10/12/16 13:19 10/12/16 13:19 - EKG Data EKG shows normal: sinus rhythm - EKG Data Prior EKG available for review: yes When compared to previous EKG: there are significant changes - Diagnostic Studies Other Images Additional comments: Chest X-Ray 10/12/16 13:03 IMPRESSION: Minimal discoid atelectasis in the right mid lung. Otherwise no acute cardiopulmonary process. D/ / Gómez Gallo MD / Gómez Gallo MD Interpreting Provider: Gómez Gallo MD
[2016-10-12] MEDS: Insulin LISPRO 300 UNITS/3 ML VIAL SQ SCH ×2 (17:57→20:18)
[2016-10-12] MEDS ORDERED: methylPREDNISolone 125 MG/2 ML VIAL IM SCH (18:00)
[2016-10-12] MEDS: Levofloxacin 750 MG/150 ML 750 MG/150 ML BAG IVPB SCH (18:39)
[2016-10-12] MEDS: APIXABAN 5 MG TABLET PO SCH (20:17)
[2016-10-12] MEDS: Ipratropium/Albuterol Neb 3 ML IH SCH ×2 (20:33→23:15)
[2016-10-12] MEDS ORDERED: Insulin LISPRO 300 UNITS/3 ML VIAL SQ STA (22:39)
[2016-10-12] MEDS: methylPREDNISolone 125 MG/2 ML VIAL IVP SCH (23:10)
[2016-10-13] MEDS: Ipratropium/Albuterol Neb 3 ML IH SCH ×5 (03:59→20:09)
[2016-10-13 04:45] LABS: Basophils % 0.2 %; Hematocrit 29.4 % (37.5-50.1); Hemoglobin 9.3 g/dL (12.9-16.9); Immature Granulocytes % 0.5 % (0-4); Lymphocytes # 1.1 K/mcL (0.6-4.6); Lymphocytes % 18.3 %; Mean Corpuscular HGB Conc 31.6 g/dL (31.6-35.5); Mean Corpuscular Hemoglobin 26.8 pg (28.0-33.3); Mean Corpuscular Volume 84.7 fL (83.0-100.0); Mean Platelet Volume 9.8 fL (9.4-12.4); Monocytes # 0.1 K/mcL (0.0-1.3); Monocytes % 1.9 %; Neutrophils # 4.9 K/mcL (1.6-8.9); Platelet Count 225 K/mcL (140-400); Red Blood Count 3.47 M/mcL (4.19-5.50); Red Cell Distribution Width 14.9 % (11.5-14.5); Segmented Neutrophils % 79.1 %
[2016-10-13 05:00] LABS: Calcium 9.4 mg/dL (8.6-10.8); Potassium 3.8 mEq/L (3.5-4.5)
[2016-10-13] MEDS: methylPREDNISolone 125 MG/2 ML VIAL IVP SCH ×2 (06:28→12:30)
[2016-10-13] MEDS: Insulin LISPRO 300 UNITS/3 ML VIAL SQ SCH ×4 (08:44→20:51)
[2016-10-13] MEDS: APIXABAN 5 MG TABLET PO SCH ×2 (08:44→20:50)
[2016-10-13] MEDS: Diltiazem CD (24hr) 240 MG CAPSULE PO SCH (08:44)
[2016-10-13] MEDS: Metoprolol XL (24 HR) Succ 50 MG TAB.ER.24H PO SCH (08:45)
[2016-10-13] MEDS: Levofloxacin 750 MG/150 ML 750 MG/150 ML BAG IVPB SCH (08:45)
[2016-10-13] MEDS: Fluticasone/Vilanterol [Breo Ellipta 200-25 Mcg Inh IH SCH (08:45)
[2016-10-13] MEDS ORDERED: Loratadine 10 MG TABLET PO SCH (09:00)
[2016-10-13] MEDS ORDERED: Tiotropium 18 MCG inhalation IH SCH (09:00)
[2016-10-13] MEDS: Insulin DETEMIR 100 UNIT/ML X5UNITS SQ SCH (10:14)
[2016-10-13] MEDS: MethylPREDNISolone 40 MG/ML VIAL IVP SCH ×2 (13:05→20:50)
--- NOTE | 2016-10-13 13:25 | Electrocardiograph Report ---
[address] [address] Test Date: 2016-10-12 Pat Name: Tri Garrett Department: 104 Room: 3B Gender: M [employer]: : [id number] Requested By: Michael Moses Order Number: [id number] Reading MD: Sy Biswas MD Measurements Intervals [place] Rate: 99 P: 62 MO: 159 QRS: 36 QRSD: 86 T: 71 QT: 328 QTc: 384 Interpretive Statements SINUS RHYTHM WITH SINUS ARRHYTHMIA Electronically Signed On 10-13-2016 13:24:16 EDT by Sy Biswas MD
[2016-10-13] MEDS: 0.9 % Sodium Chloride 1,000 ML IVC SCH (14:35)
--- NOTE | 2016-10-13 17:29 | Internal Med Progress Note ---
Date of Encounter: 10/13/16 Time of Encounter: 17:27 - Assessment and plan (1) Acute exacerbation of chronic obstructive airways disease Current Visit: Yes Status: Acute Assessment and plan: continue with systemic steroids, hhn dvt prohylaxis. oxygen therapy. bipap qualification. d/w patient. (2) CRISTOBAL (acute kidney injury) Current Visit: Yes Status: Acute Assessment and plan: iv fluids. monitor renal function tests. hold nephrotoxic agents. (3) Hypoxia Current Visit: Yes Status: Acute (4) Atrial fibrillation Current Visit: No Status: Acute Qualifiers: Atrial fibrillation type: paroxysmal Qualified Code(s): I48.0 - Paroxysmal atrial fibrillation (5) DVT prophylaxis Current Visit: No Status: Acute (6) Diabetes mellitus Current Visit: No Status: Acute Qualifiers: Diabetes mellitus type: type 2 Diabetes mellitus complication status: with unspecified complications Diabetes mellitus lobsterman insulin use: with longterm use Qualified Code(s): E11.8 - Type 2 diabetes mellitus with unspecified complications; Z79.4 - FPC (current) use of insulin (7) Morbid obesity Current Visit: No Status: Chronic Qualifiers: Obesity type: unspecified obesity type Qualified Code(s): E66.01 - Morbid ( severe) obesity due to excess calories - Subjective Interval history: 1st encounter with the patient. afebile. still short of breath, former smoker. copd and home oxygen. at bedside. - Constitutional Vitals: Temp Pulse Resp BP Pulse Ox 97.7 F 81 20 145/64 94 10/13/16 14:57 10/13/16 14:57 10/13/16 16:49 10/13/16 14:57 10/13/16 16:49 General appearance: Present: cooperative, mild distress, A&O X 3, obese, answers questions appropriately - Head Head exam: Present: atraumatic, normocephalic - Eye Eye exam: Present: PERRL, conjuntiva pink, sclera anicteric Pupils: Present: PERRL - Neck Neck exam general surgery: Present: supple, trachea midline. Absent: lymphadenopathy - Respiratory Respiratory exam: Present: decreased breath sounds, wheezes. Absent: accessory muscle use, rales, rhonchi - Cardiovascular Cardiovascular exam: Present: RRR, +S1, +S2. Absent: diastolic murmur, gallop, rubs, systolic murmur - GI/Abdominal GI/Abdominal exam: Present: normal bowel sounds, soft, no peritoneal signs. Absent: distended, tenderness - Extremities Exam Extremities exam: Present: warm, radial pulses palpable and symetrical. Absent : calf tenderness, cyanotic, pedal edema - Neurological Exam Neurological exam: Present: CN II-XII intact, oriented X3, no focal deficits. Absent: pronater drift, facial droop, speech deficit - Skin Skin exam: Present: dry, intact Internal Medicine: Result - Labs CBC & Chem 7: 10/13/16 04:19 10/13/16 04:19 Labs: Short CBC 10/13/16 Range/Units 04:19 WBC 6.2 (4.3-11.1) K/mcL Hgb 9.3 L (12.9-16.9) g/dL Hct 29.4 L (37.5-50.1) % Plt Count 225 (140-400) K/mcL Neutrophils # 4.9 (1.6-8.9) K/mcL BMP 10/13/16 04:19 Sodium 133 L Potassium 3.8 Chloride 101 Carbon Dioxide 20 BUN 25 Creatinine 1.53 H Glucose 295 H Calcium 9.4 - ABG Interpretation ABG results: PT/INR, D-dimer PT 18.5 Seconds (9.4-12.1) H 10/12/16 13:19 Consult Discharge Plan - Plan Referrals: Raphael Hawthorne MD [Primary Care Provider] -
[2016-10-14] MEDS: Ipratropium/Albuterol Neb 3 ML IH SCH ×4 (00:03→11:16)
[2016-10-14] MEDS: MethylPREDNISolone 40 MG/ML VIAL IVP SCH (04:50)
[2016-10-14] MEDS: 0.9 % Sodium Chloride 1,000 ML IVC SCH (04:51)
[2016-10-14 05:01] LABS: Basophils % 0.1 %; Hematocrit 30.3 % (37.5-50.1); Hemoglobin 9.6 g/dL (12.9-16.9); Immature Granulocytes % 0.8 % (0-4); Lymphocytes % 8.2 %; Mean Corpuscular HGB Conc 31.7 g/dL (31.6-35.5); Mean Corpuscular Volume 85.1 fL (83.0-100.0); Mean Platelet Volume 10.1 fL (9.4-12.4); Monocytes # 0.3 K/mcL (0.0-1.3); Monocytes % 2.7 %; Neutrophils # 10.4 K/mcL (1.6-8.9); Platelet Count 293 K/mcL (140-400); Red Blood Count 3.56 M/mcL (4.19-5.50); Red Cell Distribution Width 14.6 % (11.5-14.5); Segmented Neutrophils % 88.2 %
[2016-10-14 05:42] LABS: BUN/Creatinine Ratio 22 (6-26); Blood Urea Nitrogen 28 mg/dL (8-26); Calcium 9.6 mg/dL (8.6-10.8); Carbon Dioxide 19 mEq/L (19-29); Chloride 105 mEq/L (98-109); Glucose 294 mg/dL (70-99); Osmolality,Calculated 294 (280-300); Potassium 3.9 mEq/L (3.5-4.5); Sodium 134 mEq/L (136-145); eGFR For African Americans > 60 (> 60); eGFR For Non-African Americans 56 (> 60)
[2016-10-14] MEDS: Metoprolol XL (24 HR) Succ 50 MG TAB.ER.24H PO SCH (09:22)
[2016-10-14] MEDS: Insulin LISPRO 300 UNITS/3 ML VIAL SQ SCH ×2 (09:22→12:18)
[2016-10-14] MEDS: Diltiazem CD (24hr) 240 MG CAPSULE PO SCH (09:22)
[2016-10-14] MEDS: APIXABAN 5 MG TABLET PO SCH (09:22)
[2016-10-14] MEDS: Levofloxacin 750 MG/150 ML 750 MG/150 ML BAG IVPB SCH (09:23)
[2016-10-14] MEDS: Fluticasone/Vilanterol [Breo Ellipta 200-25 Mcg Inh IH SCH (09:23)
[2016-10-14] MEDS: Insulin DETEMIR 100 UNIT/ML X5UNITS SQ SCH (09:25)
--- NOTE | 2016-10-14 11:20 | Discharge Summary ---
Date of Encounter: 10/14/16 Time of Encounter: 11:17 - Discharge Diagnosis (1) Acute exacerbation of chronic obstructive airways disease Priority: Primary Status: Acute (2) CRISTOBAL (acute kidney injury) Priority: Secondary Status: Acute (3) Hypoxia Priority: Secondary Status: Acute (4) Atrial fibrillation Priority: Secondary Status: Acute Qualifiers: Atrial fibrillation type: paroxysmal Qualified Code(s): I48.0 - Paroxysmal atrial fibrillation (5) DVT prophylaxis Priority: Secondary Status: Acute (6) Diabetes mellitus Priority: Secondary Status: Acute Qualifiers: Diabetes mellitus type: type 2 Diabetes mellitus complication status: with unspecified complications Diabetes mellitus long-term insulin use: with watermaster use Qualified Code(s): E11.8 - Type 2 diabetes mellitus with unspecified complications; Z79.4 - director long term care (current) use of insulin (7) Morbid obesity Priority: Secondary Status: Chronic Qualifiers: Obesity type: unspecified obesity type Qualified Code(s): E66.01 - Morbid ( severe) obesity due to excess calories - Discharge Medications Prescriptions: Levofloxacin [Levaquin] 750 mg PO DAILY #4 tablet PredniSONE [Prednisone] 40 mg PO DAILY 4 Days Tamsulosin [Flomax] 0.4 mg PO HS #14 capsule Home Medications: Fluticasone/Vilanterol [Breo Ellipta 200-25 Mcg INH] 1 puff IH DAILY 08/29/16 [ History] Gemfibrozil 600 mg PO BID 08/29/16 [History] Glimepiride [Amaryl] 2 mg PO BID 08/29/16 [History] Insulin Glargine,Hum.rec.anlog [Lantus Solostar] 65 unit SQ QAM 08/29/16 [ History] Ipratropium/Albuterol Neb [Duoneb] 3 ml IH Q4HR 08/29/16 [History] Loratadine [Claritin] 10 mg PO DAILY 08/29/16 [History] Pravastatin Sodium [Pravachol] 80 mg PO HS 08/29/16 [History] Tiotropium [place] [Spiriva] 18 mcg IH DAILY 08/29/16 [History] Apixaban [Eliquis] 5 mg PO BID #60 tablet 09/03/16 [Rx] Diltiazem CD (24hr) [Cardizem CD] 240 mg PO DAILY #30 cap.er.24h 09/03/16 [Rx] Albuterol Neb [Proventil Neb] 2.5 mg IH Q4HR 10/12/16 [History] Albuterol Sulfate [Albuterol Inhaler] 2 puff IH Q4-6H PRN 10/12/16 [History] Metoprolol XL (24 HR) Succ [Toprol Xl] 50 mg PO DAILY 10/12/16 [History] Levofloxacin [Levaquin] 750 mg PO DAILY #4 tablet 10/14/16 [Rx] PredniSONE [Prednisone] 40 mg PO DAILY 4 Days 10/14/16 [Rx] Tamsulosin [Flomax] 0.4 mg PO HS #14 capsule 10/14/16 [Rx] Allergies/Adverse Reactions: Allergies No Known Allergies Allergy (Verified 08/29/16 07:09) Date of admission: 10/12/16 16:09 Primary care physician: Raphael Hawthorne MD Discharging clinician: Ino Kern Anticipated date of discharge: 10/14/16 - Patient Status Disposition: Home, Self-Care Condition: Fair Functional capacity at discharge: independent ambulation Overall status at discharge: patient is back to baseline - Discharge Instructions Follow Up With: Raphael Hawthorne MD [Primary Care Provider] - Additional Instructions: Follow up with PCP Follow up with pulmonology as iutpatient for evaluation of his COPD - Diet and Activity Activity: increase activity as tolerated Diet: diabetic diet Interval History: Mr. Garrett is a 71 year old male past history of COPD oxygen dependent CVA diabetes type 2 hyperlipidemia hypertension paroxysmal atrial fibrillation. Continue the patient is using increasing shortness of breath for the past week. Despite 2.5 liters continuous oxygen as well breathing treatment his shortness of breath has not improved. He is having difficulty sleeping at night waking up frequently and she has noticed increased wheezing. He does have a cough which she states is chronic no change in sputum production he denies any fevers or chills. He does admit to recent exposure to illness, his has had an upper respiratory infection. This morning patient states his shortness of breath had worsened he was unable to walk 10 steps without becoming short of breath. He presented to the ER with the above complaints. According to ER records chest x-ray revealed minimal atelectasis in the right midlung no leukocytosis troponin was 0 BNP is 17 was noted that his creatinine was 1.45, O2 saturation on presentation was 90% is afebrile patient was given duo nebs as well as IV steroids and has been admitted for further workup and evaluation. patient does not appear to be a restaurant distress he denies any chest pain or shortness of breath Hospital course: Mr. Garrett is a 71 year old male admitted due to an acute exacerbation of his underlying chronic obstructive pulmonary disease. The patient did not have evidence of pneumonia in the x-ray. There was some minimal discoid atelectasis in the right mid lung. Otherwise no acute cardiopulmonary process where noted in the x-ray. However, he had some acute kidney injury which improved after IV hydration. He did not have any leukocytosis since admission. There was some mild elevation in the white count after the second night, likely due to the use of systemic steroids as part of the treatment of his COPD exacerbation. The patient is a use of long-term oxygen therapy, he states that he was only using oxygen as needed. He was encouraged to use at least 15 hours of oxygen therapy at home on a regular basis. We will discharge the patient home today, we will continue with by mouth steroids will give a short course of prednisone 40 mg daily along with a complete course of antibiotics. He will go home with Levaquin. Additionally, he was complaining of some Antionette, we will continue with tamsulosin. The patient will follow up as outpatient with his primary care physician, would also recommend a follow-up with pulmonology for management and evaluation of the COPD. We will resume his home medication, we recommend to what the hold losartan for now in light of the mild acute kidney injury. This could be resumed by his primary care physician later on. - Time Spent with Patient Total time spent providing and/or coordinating discharge services: - Constitutional Vitals: Temp Pulse Resp BP Pulse Ox 97.6 F 77 16 144/74 91 10/14/16 07:00 10/14/16 07:00 10/14/16 07:36 10/14/16 07:00 10/14/16 07:36 General appearance: Present: cooperative, mild distress, A&O X 3, obese, answers questions appropriately - Head Head exam: Present: atraumatic, normocephalic - Eye Eye exam: Present: PERRL, conjuntiva pink, sclera anicteric Pupils: Present: PERRL - Neck Neck exam general surgery: Present: supple, trachea midline. Absent: lymphadenopathy - Respiratory Respiratory exam: Present: decreased breath sounds. Absent: accessory muscle use, rales, rhonchi, wheezes - Cardiovascular Cardiovascular exam: Present: RRR, +S1, +S2. Absent: diastolic murmur, gallop, rubs, systolic murmur - GI/Abdominal GI/Abdominal exam: Present: normal bowel sounds, soft, no peritoneal signs. Absent: distended, tenderness - Extremities Exam Extremities exam: Present: warm, radial pulses palpable and symetrical. Absent : calf tenderness, cyanotic, pedal edema - Neurological Exam Neurological exam: Present: CN II-XII intact, oriented X3, no focal deficits. Absent: pronater drift, facial droop, speech deficit - Skin Skin exam: Present: dry, intact
--- NOTE | 2016-10-14 11:30 | Physician Discharge Referral ---
Home Health/Hosp Referral Info Transfer to: Home Health Provider in Charge Post Discharge: PCP - Diagnosis (1) Acute exacerbation of chronic obstructive airways disease Status: Acute (2) CRISTOBAL (acute kidney injury) Status: Acute (3) Hypoxia Status: Acute (4) Atrial fibrillation Status: Acute (5) DVT prophylaxis Status: Acute (6) Diabetes mellitus Status: Acute (7) Morbid obesity Status: Chronic - Respiratory Orders Oxygen / L per min (2) Smoking Cessation: Smoking cessation has been advised. For more information, call the [employer] Quit Line at 1-684-UNYY-NOW. - Diet/Nutrition Diet/Nutrition Orders: Cardiac (ADA) - Activity Activity Orders: Up ad jaimie - Services Needed Following services are medically necessary services: Home Health Aide - Transfer Medications Prescriptions: Levofloxacin [Levaquin] 750 mg PO DAILY #4 tablet PredniSONE [Prednisone] 40 mg PO DAILY 4 Days Tamsulosin [Flomax] 0.4 mg PO HS #14 capsule Home Medications: Fluticasone/Vilanterol [Breo Ellipta 200-25 Mcg INH] 1 puff IH DAILY 08/29/16 [ History] Gemfibrozil 600 mg PO BID 08/29/16 [History] Glimepiride [Amaryl] 2 mg PO BID 08/29/16 [History] Insulin Glargine,Hum.rec.anlog [Lantus Solostar] 65 unit SQ QAM 08/29/16 [ History] Ipratropium/Albuterol Neb [Duoneb] 3 ml IH Q4HR 08/29/16 [History] Loratadine [Claritin] 10 mg PO DAILY 08/29/16 [History] Pravastatin Sodium [Pravachol] 80 mg PO HS 08/29/16 [History] Tiotropium [place] [Spiriva] 18 mcg IH DAILY 08/29/16 [History] Apixaban [Eliquis] 5 mg PO BID #60 tablet 09/03/16 [Rx] Diltiazem CD (24hr) [Cardizem CD] 240 mg PO DAILY #30 cap.er.24h 09/03/16 [Rx] Albuterol Neb [Proventil Neb] 2.5 mg IH Q4HR 10/12/16 [History] Albuterol Sulfate [Albuterol Inhaler] 2 puff IH Q4-6H PRN 10/12/16 [History] Metoprolol XL (24 HR) Succ [Toprol Xl] 50 mg PO DAILY 10/12/16 [History] Levofloxacin [Levaquin] 750 mg PO DAILY #4 tablet 10/14/16 [Rx] PredniSONE [Prednisone] 40 mg PO DAILY 4 Days 10/14/16 [Rx] Tamsulosin [Flomax] 0.4 mg PO HS #14 capsule 10/14/16 [Rx] Allergies/Adverse Reactions: Allergies No Known Allergies Allergy (Verified 08/29/16 07:09) Certification: Further, I certify that my clinical findings support that this patient is homebound (i.e. absences from home require considerable and taxing effort and are for medical reasons or church services or infrequently or short duration when for other reasons) because: Homebound Reason: Severity of cardiac or pulmonary status limits activity tolerance Attestation: My signature below is to certify that this patient is under my care and that I, or nurse practitioner, or a physician's assistant professor of marine biology working with me, has a face-to -face encounter with this patient.
[2016-10-14 11:43] VITALS: BP 146/72
[2016-10-14 12:00] LABS: ABG Base Excess -5.4 mEq/L (-2.0 to 3.0); ABG HCO3 18.6 mEQ/L (21-27); ABG Oxygen Saturation 94 % (95-98); ABG PCO2 30 mmHg (35-45); ABG PO2 72 mmHg (85-104); ABG TCO2 19.5 mEq/L (20-26); Blood Gas FiO2 28 %; Blood Gas Liter Flow 2 L/MIN
== END 2016-10-14 14:23 | disposition home or self-care (01) | DRG 191 ==
LOC: EMEROO 12:48 → 3BNU 12:48 → SUATTDRO 16:09
PROVIDERS: ADMIT Hospitalist; ATTEND Internal Medicine